=== PATIENT | female | born 1940 | race Caucasian/White ===

== ENCOUNTER 2023-07-29 06:04 | Day surgery (SDC) | payer OTHER, SELFPAY ==
[2023-07-28 09:45] VITALS: BMI 29.2
[2023-07-29] VITALS (16 sets, daily range): BP systolic 99–145; BP diastolic 49–72; PULSE 65–84; RESP 11–20; TEMP 36.1–37; O2SAT 88–99; BMI 29.7
--- NOTE | 2023-07-29 | DI.RAD.S_ITS ---
PROCEDURE: [id number] W PEL IF PERFORMED INDICATIONS: intra op total left hip TECHNIQUE: AP pelvis with lateral view(s) of the left hip(s). COMPARISON: Located Within [facility], CR, XR HIP W PEL IF DONE LT 2V, 07/29/2023, 11:30. [facility], CR, XR PELVIS WITH LATERAL HIP LEFT, 07/27/2023, 12:28. [facility] [place], CR, XR BONE LENGTH SCANOGRAM, 07/14/2023, 13:05. FINDINGS: Multiple intraoperative fluoroscopy images demonstrate total hip arthroplasty. The prosthesis is in anatomic alignment. IMPRESSION: Left hip arthroplasty with prosthesis in anatomic alignment. Dictated by: Dominique Izaguirre M.D. on 07/29/2023 at 14:11 Approved by: Dominique Izaguirre M.D. on 07/29/2023 at 14:13
--- NOTE | 2023-07-29 06:00 | DI.RAD.S_ITS ---
PROCEDURE: XR HIP W PEL IF DONE LT 2V INDICATIONS: HILARIO TECHNIQUE: AP pelvis and lateral view of the hip acquired. COMPARISON: [facility], CR, [id number] W PEL IF PERFORMED, 07/29/2023, 10:39. FINDINGS: Bones: Patient is status post left hip arthroplasty, with hardware components in expected positions. The hip joint appears congruent. The visualized bony structures appear intact. Soft tissues: Overlying postoperative changes are noted. No suspicious soft tissue densities. IMPRESSION: Expected post-operative appearance of a hip arthroplasty. Dictated by: Behzad Montes M.D. on 07/29/2023 at 12:17 Approved by: Behzad Montes M.D. on 07/29/2023 at 12:20
[2023-07-29] MEDS: LACTATED RINGERS 1,000 ML 42 ML IV (07:17)
[2023-07-29] MEDS: MELOXICAM 7.5 MG TABLET PO (07:18)
[2023-07-29] MEDS: ACETAMINOPHEN 325 MG TABLET 975 MG PO (07:18)
--- NOTE | 2023-07-29 07:27 | SUR.OPER ---
Supine on padded Ocate table with bilateral legs secured in padded positioning boots and suspended in positioning spars, operative leg in traction per surgeon. Head on one pillow. Arms secured on padded armboard <90 degrees abduction. Padded perineal post in place per surgeon.
--- NOTE | 2023-07-29 07:34 | PM.PREOP ---
Pre-operative Note Interval Note History & Physical reviewed/Exam performed by Physician: Yes Changes to H&P: No
[2023-07-29] MEDS: CEFAZOLIN 2 GM/100 ML PREMIX 100 ML IV ×2 (08:17→16:26)
[2023-07-29] MEDS: TRANEXAMIC ACID 1,000 MG VIAL 2000 MG INJ (08:27)
[2023-07-29] MEDS: ROPIVACAINE/EPI/CLONIDINE/KET 50 ML SYRINGE INJ (08:47)
[2023-07-29] MEDS: SODIUM CHLORIDE IRRIG SOLUTION 250 ML, EPINEPHrine 1 MG IRR (09:12)
--- NOTE | 2023-07-29 11:45 | P.OP_ITS ---
Operative Date/Time/Diagnoses Date of procedure: 07/29/23 Pre-op diagnosis: Left hip arthritis Post-op diagnosis: same Procedure & Clinicians Procedure: Left total hip arthroplasty (62056) Same procedure as scheduled: Yes Surgeon: Dinesh Rodriguez Ice Cream Dipper: Rylie Lyman Anesthesia Type: Spinal and Local Operative Notes Estimated Blood Loss (mL): 550 Procedure in detail: Implants: Depuy Total Hip Arthroplasty: * Depuy [place] Gription size 54 cup?with 3 screws * Depuy C stem femoral stem size 6 high offset? * 36 mm +1.5 ceramic femoral head? Procedure Summary: This 82-year-old female patient presented my clinic with a constellation of orthopedic issues. On her right hip she had a prior total hip arthroplasty with a modular neck prosthesis. I obtained metal ion levels which were slightly elevated and plan to monitor that side. In her right tibia she has a prior tibial fracture which underwent intramedullary nailing and has a malunion. There is a significant rotational component to her deformity. I sent her for evaluation from an Orthopedic traumatologist who recommended addressing her deformity through a total knee arthroplasty. I have discussed doing that in the future. I felt that the tibia was likely her biggest source of functional impairment but she felt very strongly that it was her hip and strongly desired to address her hip 1st. This left hip had significant arthritic changes. As part of the surgery planning process I obtained results of her prior DEXA scan which were actually normal. Given her age and appearance on plain film radiographs of severe osteoporosis in his hip I did not believe those results and proceeded with cemented fixation for today's procedure. Intraoperatively I utilized screw fixation for her acetabular component given her poor bone quality. I broached all the way up to a size 5 broach for the C stem system, which is 1 of the larger broaches for this implant. After initial trialing that was actually rotationally unstable so I upsized to a size 6 for the final implant. I had appropriate stability during initial trialing with the size 5 broach and this remained the case when trialing with a size 6 high offset stem following cementation. During the insertion of the stem I applied a valgus moment to avoid having the stem rest in varus and this resulted in slight valgus positioning of the stem due to the capacious nature of her femoral canal. This likely resulted in slight increase in leg length and slight decrease in offset in the final construct. It was quite challenging to assess leg length fluoroscopically as her lesser trochanters on both sides were challenging to visualize due to diminished bone mineral density within them. Additionally, I have discussed with her and her family at length that she may have a limb length discrepancy following the combination of procedures I plan to proceed with because of the deformity in her right tibia. The patient has factor 5 Leiden and I will use her home anticoagulation for DVT prophylaxis following her departure from the hospital. While she remains in the hospital I will utilize aspirin DVT prophylaxis. Procedure in Detail: This patient was seen preoperatively and evaluated for hip pain which was refractory to numerous nonoperative treatment modalities. Their hip pain correlated with radiographic changes demonstrating significant degeneration in the hip joint. The risks and benefits of continued nonoperative management versus operative management were discussed at length and all of the patient?s questions were answered. Additional educational materials providing further details beyond our discussion in clinic were provided via a publicly available patient education video which included the incidence of medical complications associated with total hip arthroplasty, reasons for revision following total hip arthroplasty, and patient satisfaction rates following total hip arthroplasty. That video can be accessed at [email or web address] . With this understanding of the risks inherent to the procedure, the patient elected to move forward with operative management. Following preoperative optimization, the patient was scheduled for surgery. The patient was met in the preoperative holding area the day of the procedure and all questions were answered. The patient?s nares were swabbed with betadine in order to decolonize them from MRSA. Informed consent was signed and the operative limb was marked with indelible ink.? The patient was brought back to the operating room where anesthesia was induced. The patient was transferred to the [place] table and all bony prominences were padded. The operative site was prepped and draped in the usual sterile fashion. Prior to incision, tranexamic acid and cefazolin were administered. Operative templating images were displayed demonstrating the anticipated implant sizes and correct operative extremity. A timeout procedure was performed verifying the patient?s identity, medical comorbidities, allergies, relevant medications, anesthesia type and the surgical plan. All present were in agreement. The assistance of a physician medical record assistant was required for positioning, room setup, soft tissue retraction and wound closure. Without this assistance, the procedure would have been significantly more challenging and time consuming.?? A direct anterior approach to the hip was utilized. This was performed with a longitudinal incision through a Heuter interval. The incision was planned 2 cm distal and 2 cm lateral to the ASIS extending towards the lateral patella, in line with the muscle body of the TFL. Following incision, the subcutaneous tissue was dissected while taking care to avoid injury to the lateral femoral cutaneous nerve. The fascia overlying the TFL was identified by dissecting off the overlying fat and identifying perforating vessels to the TFL. The TFL fascia was incised and dissected away from the medial border of the TFL. A cobra retractor was placed over the superior femoral neck between the abductors and the hip capsule and used to reflect the TFL laterally. A [place] self-retainer was then placed in the distal aspect of the wound between the TFL and the rectus femoris. This was tensioned to open up the direct anterior interval and the lateral circumflex vessels were identified and coagulated using electrocautery. The floor of the TFL fascia was incised, exposing the pericapsular fat overlying the hip capsule. A second cobra retractor was placed on the inferior femoral neck. A double-bent soft tissue retractor was placed on the anterior wall of the acetabulum and used to tension the reflected head of rectus femoris, which was then released in order to limit soft tissue tension. A capsulotomy was made in the midline of the anterior hip capsule in line with the femoral neck ending at the vastus tubercle. The double-bent retractor was removed in order to limit the amount of time that a soft tissue retractor remained on the anterior wall and protect the femoral nerve. Tag stitches were placed in the superior and inferior leaflets of the hip capsule. An [place] soft tissue retractor was introduced over the tag stitches and tensioned in the interval between the rectus femoris and the TFL in order to retract and protect those muscles. The cobra retractors were replaced intracapsularly, with one over the superior neck in the pocket created by the base of the greater trochanter and the other on the femoral head. The capsulotomy was extended laterally to the base of the greater trochanter and medially to the lesser trochanter. This required externally rotating the hip. Once the lesser trochanter had been identified, a neck cut was planned according to measurements from preoperative templating. A ruler was cut at the length measured between the superior aspect of the lesser trochanter and the collar of the prosthesis. This line was extended towards the inferior aspect of the lateral cobra retractor to plan a cut which would leave minimal residual femoral neck laterally. The neck was cut at 60 degrees of external rotation along that line. A second cut was performed to remove a large napkin ring and facilitate head extraction. The napkin ring cut and femoral head were removed.?? A broad anterior wall retractor was placed between the labrum and the anterior capsule so that the anterior capsule would prevent capturing and pinching the femoral nerve anteriorly. An additional retractor was placed on the posterior wall. External rotation and traction were applied through the [place] table so that the cut surface of the femoral neck would not restrict access to the acetabulum. The labrum was excised sharply and the pulvinar was excised with electrocautery to limit bleeding from branches of the obturator artery. Acetabular reamers were selected based on preoperative templating and measurements of the excised femoral head. These were introduced into the acetabulum. Fluoroscopy was utilized to replicate a standing AP pelvis radiograph by centering over the pelvis, rotating until there was appropriate symmetry between the obturator foramen, and introducing caudal tilt to match the position of the pubic symphysis relative to the sacrococcygeal junction according to the patient?s anatomy. Fluoroscopy was utilized to ensure appropriate reaming depth. Once satisfied with the reaming depth corresponding to the preoperative template and the pinch fit between the columns, an appropriate sized acetabular cup was selected which would provide 1 mm of press-fit. This cup was introduced and manipulated until appropriate abduction and anteversion angles were obtained with careful attention to appropriate abduction and anteversion angles as evaluated by the position of the cup relative to the anterior and posterior contreras of the acetabulum and the AP fluoroscopy which recreated the patient?s standing radiograph. The cup was impacted into place. Three screws were placed through the cup. Peripheral osteophytes were removed. The acetabular liner was then placed with care to ensure locking of the locking mechanism.? Attention was then turned to the femur. All retractors were removed, traction was released, a retractor was placed in the interval between the hip capsule and the gluteus minimus, and the hip was externally rotated to 90 degrees. Traction was applied through the [place] table to tension the lateral capsule and this was released using electrocautery. Traction was released and a [place] hook was placed posteriorly around the proximal femur at the level of the vastus ridge. The table height was lowered in order to restrict the tension on the anterior structures during hip hyperextension to limit the risk of femoral nerve palsy. With traction off and the hip at 90 degrees of external rotation, the hip was hyperextended and adducted while manually elevating the femur away from the acetabulum with the [place] hook to ensure it would not be caught behind the greater trochanter. An asymmetric retractor was placed over the calcar and a broad double-pronged retractor was placed over the greater trochanter. The tag stitch capturing the lateral leaflet of the capsule was moved to the medial side, leaving the conjoined and piriformis tendons isolated in the face of the greater trochanter. The hip was externally rotated and elevated. A release of the conjoined tendon was not necessary in order to obtain adequate exposure for broaching but was utilized any way in order to protect her relatively poor bone. The canal was opened with an opening broach and a rasp was used to remove cancellous bone. I noted extremely poor bone quality when I did this. A rongeur was used to remove the residual lateral bone at the base of the greater trochanter to avoid placing the stem in varus. The femur was then broached to the appropriate sized stem yielding good rotational fit and fill of the canal as well as appropriate version of the stem trial. Neck and head trials were placed, all retractors were removed and the hip was returned to neutral abduction and extension. I then reduced the hip. An AP pelvis fluoroscopic image matching the preoperative standing radiograph was obtained with both hips in 40 degrees of external rotation. This was challenging to interpret due to poor bone mineral density in her lesser trochanters. An AP hip fluoroscopic image was obtained with the hip in neutral rotation which demonstrated appropriate canal fill. Hip stability was evaluated with 120 degrees of external rotation and a 45 degree drop test which demonstrated good stability. The hip was dislocated and I returned to the broaching position. I noted that the size 5 broach was unstable so I inserted a size 6 broach and was able to bring it down to the same level as my initial calcar planing. I irrigated the canal with a canal interventional nurse. I placed a cement restrictor. I irrigated again. I placed a whistle-tip catheter down the canal. I placed epinephrine-soaked vaginal packing around the whistle-tip catheter. Cement was mixed. I removed the vaginal packing and placed cement down the canal. I digitally pressurized it. I pressurized it again using the gun. The definitive stem was placed. I again trialed and again found satisfactory results. I therefore returned to the broaching position. And the trunnion was cleaned and dried. I placed a ceramic head onto the trunnion and impacted it into place on the [place] taper.??All retractors were removed and the hip was reduced. A dilute mixture of betadine and peroxide was used to bathe the soft tissues during final fluoroscopic assessment. Appropriate component positioning was confirmed on an AP pelvis radiograph with the operative and nonoperative legs in 40 degrees of external rotation, evaluating leg length and offset. Appropriate stem fill was evaluated on an AP hip radiograph with the operative leg in neutral rotation. No fractures were identified on these radiographs. Stability was satisfactory with a 120 degree external rotation test as well as a 45 degree drop test. The hip was copiously irrigated with pulse lavage. The capsule was closed with absorbable interrupted suture. The TFL fascia was closed with barbed suture while carefully protecting the lateral femoral cutaneous nerve from entrapment. A mixture of Ropivacaine, Epinephrine, Clonidine and Toradol was infiltrated throughout the soft tissues. The skin was closed with 2-0 and 3-0 sutures. Surgical glue was applied and a soft dressing was placed.??The sponge, instr ument and needle counts were reported as being correct at the end of the case.??No obvious complications occurred. The patient was transferred from the [facility] back to a stretcher. The patient emerged from anesthesia without difficulty and was taken to the PACU in a stable condition.? Plan for aftercare: * Anterior hip precautions * Weightbearing as tolerated * Mobilization as soon as the patient has recovered from anesthesia * Holding antihypertensives while we evaluate for orthostatic hypotension during patient's initial recovery. Plan to restart home antihypertensives once her postoperative blood pressure has stabilized * Aspirin 81 twice per day for DVT prophylaxis until she leaves the hospital at which time she should restart her home anticoagulant * Multimodal pain regimen with no IV opioids ordered * Anticipate discharge home tomorrow or the day after * Sia incisional wound VAC in place. This can remain on until the battery dies at which time the cord can be removed and it can remain in place until follow up visit * Follow up at [facility] in 2 weeks * Detailed postoperative instructions available at [email or web address]
[2023-07-29] MEDS: OXYCODONE IR 5 MG TABLET PO (11:51)
[2023-07-29] MEDS: IBUPROFEN 600 MG TABLET PO ×2 (12:37→17:47)
[2023-07-29] MEDS: LACTATED RINGERS 1,000 ML 100 ML IV (12:38)
--- NOTE | 2023-07-29 15:30 | PT.IIE ---
Current Diagnoses Unilateral primary osteoarthritis, left hip (07/29/23) Surgery Performed Operation Date: 07/29/23 07:45 Actual Procedures p Total Hip Arthroplasty/Anterior Approach(Left) - Dinesh Rodriguez MD Surgical History (Last Reviewed 07/29/23 @ 07:33 by Daly Landry, RN) History of carpal tunnel surgery of left wrist History of carpal tunnel surgery of right wrist History of hysterectomy History of open reduction and internal fixation (ORIF) procedure (04/2022) History of total right hip replacement (~2012) Hx of foot surgery Medical History (Last Reviewed 07/29/23 @ 07:33 by Daly Landry, SHARRI) Embolism (~2016) Factor V Leiden History of COVID-19 (~02/2023) HTN (hypertension) Hypothyroidism IBS (irritable bowel syndrome) Macular degeneration of both eyes Osteoarthritis Osteoporosis Pulmonary embolism (2009) Stasis dermatitis Physical Therapy Inpatient Evaluation/Re-Eval M1 PT/OT-IP Prior Functional Status Start: 07/29/23 16:35 Freq: NEEDED Status: Active Protocol: Document 07/29/23 15:30 AB (Rec: 07/29/23 16:53 AB [id number]) Medical Review Prior Functional Status Medical History Reviewed Yes Communication able to make needs known Mobility and Gait pt stated that she was modified independent with all mobilities and ambulation using a 4WW Social History Household Members family Living Arrangements House Number of Floors (Floors) One Floor Number of Stairs To Enter/Railing? has 1 step to enter the house Home Environment High Toilet,Walk in Shower Home Equipment Four Wheel Walker,Shower Seat with Backrest,Hand Held Shower ,Lift Recliner,Grab Bars In Shower Additional Social History Comment pt stated that she lives with her son and DIL pt has a toilet safety frame pt uses a lift recliner to sleep on M2 PT-IP Current Condition Start: 07/29/23 16:35 Freq: NEEDED Status: Active Protocol: Document 07/29/23 15:30 AB (Rec: 07/29/23 16:53 AB [id number]) Physical Therapy Current Condition Current Condition Evaluation Date 07/29/23 Treatment Diagnosis s/p L HILARIO anterior; difficulty in walking Onset Date 07/29/23 M3 PT-IP Subjective Start: 07/29/23 16:35 Freq: NEEDED Status: Active Protocol: Document 07/29/23 15:30 AB (Rec: 07/29/23 16:53 AB [id number]) Subjective Physical Therapy Visit Type Type Initial Evaluation Visit Start Time 15:30 Visit Stop Time 16:30 Number of [employer] Visits 0 Physical Therapy Visit Comments Patient Comments agreeable to do PT Therapy Pain Assessment Pain Present Pain Present Denied Pain M4 PT-IP Mobility and Gait Start: 07/29/23 16:35 Freq: NEEDED Status: Active Protocol: Document 07/29/23 15:30 AB (Rec: 07/29/23 16:53 AB [id number]) PT-Bed Mobility Assessment Supine to Sit Supine to Sit Minimal Assistance,Head of Bed Elevated,Bedrails Sit to Supine Sit to Supine Maximum Assistance,Bedrails PT-Transfer Assessment Sit to and From Stand Sit to and from Stand Minimal Assistance,1 Person Assistance,Use of Upper Extremities Equipment Transfer Assistive Device Gait Belt,Front Wheeled Walker Orthotic/Prosthetic Devices or Brace: No Transfers Transfer Destination Bedside Commode Transfer Technique Stand Step Pivot Transfer Ability Level of Assist Minimal Assistance,1 Person Assistance,Use of Upper Extremities Comments Mobility Comments pt supine in bed and agreeable to do PT. obtained PLOF and home set up from pt. pt initially does not want to use a FWW but agreed to try FWW for eval. post-op folder provided and reviewed contents . educated pt regarding anterior hip precautions LLE. pt requires cues to recall hip precautions. BP in supine 104/64. pt stated that she feels she is wet. pt completed supine to sit min A and cues. able to sit on EOB CGA. positioned bedside commode next to pt. pt completed sit to stand min A and cues and completed step transfer to bedside commode using FWW min A and cues for techniques and hip precautions . pt assisted witih brief management. completed sit to stand from bedside commode min A and cues. pt able to maintain standing balance using fWW for support min A while completing hygiene care and brief management. pt agreed to ambulate in room and completed ~ 25 ft using fWW min A and cues. pt sat on EOB . completed sit to supine max A and max cues. required assist with LE elevation to bed. positioned pt in bed. call light and table placed within reach. set up caregiver training and pt stated that she will call her son. set up at 9 am tomorrow morning. talked to pt regarding safety and use of FWW at this time and pt now agreed that FWW feels more stable than 4WW and stated that he will tell her son to get one for her. Gait Assessment Gait Gait Assistance Required: Minimum Assistance Distance (Feet) 25 Able to Maintain Weight Bearing Status Yes During Gait Assistive Devices Assistive Device Gait Belt,Front Wheeled Walker Orthotic/Prosthetic Devices or Brace: No Gait Deviations General Gait Pattern Antalgic,Decreased Stride Length,Decreased Feet Clearance,Wide Based Gait Factors Limiting Gait Function Factors Limiting Gait Function Decreased Activity Tolerance, Decreased Strength,Difficulty Following Directions,Limited Range of Motion,Pain,Poor Balance,Poor Safety Awareness PT-Balance Assessment Sitting Balance and Reactions Static Sitting Balance Ability Good Dynamic Sitting Balance Ability Good Standing Balance and Reactions Static Standing Balance Ability Fair Dynamic Standing Balance Ability Fair Device Used FWW M5 PT-IP Objective Assessments Start: 07/29/23 16:35 Freq: NEEDED Status: Active Protocol: Document 07/29/23 15:30 AB (Rec: 07/29/23 16:53 AB [id number]) Orientation Orientation/Cognition Level of Alertness Alert Orientation Name,Place,Situation Language Function Ability No Deficits Noted Safety Awareness Decreased Safety Awareness Memory Description Short Term Impaired Gross Range of Motion Lower Extremity ROM Assessment Within Functional Limits Impairments R knee valgus Strength Lower Extremity Strength Assessment Left Impaired Hip 3-/5 Knee 3+/5 Sensation Assessment Sensation Gross Sensation WNL Muscle Tone Muscle Tone WNL Yes M6 PT-IP Treatment Start: 07/29/23 16:35 Freq: NEEDED Status: Active Protocol: Document 07/29/23 15:30 AB (Rec: 07/29/23 16:53 AB [id number]) Physical Therapy Treatment Education Education Provided Precautions,Weight Bearing Status,Post-Op Packet,Safety M7 PT-IP Assessment and Plan Start: 07/29/23 16:35 Freq: NEEDED Status: Active Protocol: Document 07/29/23 15:30 AB (Rec: 07/29/23 16:53 AB [id number]) PT Summary Assessment and Plan Potential Rehabilitation Potential Fair Status of Condition at Evaluation Evolving Summary Impairments Pain,ROM,Strength,Balance, Coordination,Sensation,Tone, Cognition,Bed Mobility, Transfers,Gait,Activity Tolerance Assessment Summary pt is an 82 y/o F s/p L HILARIO anterior approach POD 0. pt has L hip anterior precautions and is WBAT. pt requiring max A with bed mobility but plans to use her lift chair to sleep on upon d/c. pt requiring min A for transfers and ambulation using a FWW. caregiver training set up for tomorrow at 9 am. will continue to assess progress. Goals Bed Mobility Goal Standby Assistance Transfer Goal Standby Assistance,Front Wheeled Walker Gait Goal Standby Assistance,Front Wheel Walker Gait Distance 150 Other Goals improve bed mobility, transfers, ambulation using 4WW/LRAD ~ 200 ft mod I up/down 1 step using FWW/4WW SBA Days to Meet Goals 5 Frequency of Treatment Frequency Of Treatment Twice a Day Treatment Plan Physical Therapy Treatment Plan Bed Mobility Training,Transfer Training,Gait Training, Therapeutic Exercise,Balance Retraining,Post Op Education, Discharge Planning,Hot or Cold Pack,Neuromuscular Re-ed, Coordination Retraining,Manual Therapy Precautions Anterior Hip Precautions No Hip Extension,No Hip External Rotation Weight Bearing Status Weight Bearing Status Weight Bear as Tolerated Allowed Weight Bearing Amount (enter % LLE WBAT or #) (%) Recommendations To Nursing Amount of Assist Needed 1 Person Assist Discharge Recommendations PT Discharge Recommendations Home with 29/11 Assist Available,Home Health, Outpatient PT Equipment Needed for Home Before FWW Discharge Transportation Needs at Discharge Private Vehicle,Wheelchair/ Cabulance
--- NOTE | 2023-07-29 18:40 | OT.IP.EVAL ---
Current Diagnoses Unilateral primary osteoarthritis, left hip (07/29/23) Surgery Performed Operation Date: 07/29/23 07:45 Actual Procedures p Total Hip Arthroplasty/Anterior Approach(Left) - Dinesh Rodriguez MD Past Medical History (Last Reviewed 07/29/23 @ 07:33 by Daly Landry, RN) Embolism (~2016) Factor V Leiden History of COVID-19 (~02/2023) HTN (hypertension) Hypothyroidism IBS (irritable bowel syndrome) Macular degeneration of both eyes Osteoarthritis Osteoporosis Pulmonary embolism (2009) Stasis dermatitis Surgical History (Last Reviewed 07/29/23 @ 07:33 by Daly Landry, RN) History of carpal tunnel surgery of left wrist History of carpal tunnel surgery of right wrist History of hysterectomy History of open reduction and internal fixation (ORIF) procedure (04/2022) History of total right hip replacement (~2012) Hx of foot surgery Occupational Therapy Inpatient Evaluation/Re-Eval M1 PT/OT-IP Prior Functional Status Start: 07/29/23 18:40 Freq: NEEDED Status: Active Protocol: Document 07/29/23 18:40 [facility] (Rec: 07/29/23 18:54 [facility] [id number]) Medical Review Prior Functional Status Medical History Reviewed Yes Communication able to make needs known Mobility and Gait pt stated that she was modified independent with all mobilities and ambulation using a 4WW Activities of Daily Living and IADL's Pt states uses LB dressing equipment and increased time for ADl. Social History Household Members family Living Arrangements House Number of Floors (Floors) One Floor Number of Stairs To Enter/Railing? has 1 step to enter the house Home Environment High Toilet,Walk in Shower Home Equipment Four Wheel Walker,Shower Seat with Backrest,Hand Held Shower ,Lift Recliner,Grab Bars In Shower Additional Social History Comment pt stated that she lives with her son and DIL pt has a toilet safety frame pt uses a lift recliner to sleep on M2 OT-IP Current Condition Start: 07/29/23 18:40 Freq: Status: Active Protocol: Document 07/29/23 18:40 [facility] (Rec: 07/29/23 18:54 [facility] [id number]) Occupational Therapy Current Condition Current Condition Evaluation Date 07/29/23 Treatment Diagnosis s/p L HILARIO anterior approach Diagnosis Onset Date 07/29/23 Post Operative Precautions Anterior Hip Precautions No Hip Extension,No Hip External Rotation M3 OT- IP Subjective and Pain Start: 07/29/23 18:40 Freq: Status: Active Protocol: Document 07/29/23 18:40 [facility] (Rec: 07/29/23 18:54 [facility] [id number]) OT- Subjective Occupational Therapy Visit Type Type Initial Evaluation Visit Start Time 17:50 Visit Stop Time 18:40 Occupational Therapy Visit Comments Patient Comments Pt agreed to get up to use the BSC. Patient/Caregiver Goals TO go home. OT Pain Assessment Pain When Pain Assessed During Mobility Pain Present Pain Present Pain Reported M4 OT- IP ADL's Start: 07/29/23 18:40 Freq: Status: Active Protocol: Document 07/29/23 18:40 [facility] (Rec: 07/29/23 18:54 [facility] [id number]) OT [id number] Comments OT Self-Feeding Comments NO issues anticipated. OT ADL-Grooming General Evaluation Grooming Ability Standby Assistance OT ADL-Oral Care Comments Oral Care Comments NOt peformed. OT ADL-Dressing General Eval Lower Body Dressing Ability Maximum Assistance Areas Needing Assistance Socks OT ADL-Toileting General Evaluation Toileting Ability Minimal Assistance Areas Needing Assistance Manage Clothing Comments OT Toileting Comments Assist to pull down the brief over her hips. Pt states usually wears pads at home and considering getting a BSC or Purewick for home use. Discussed pros and cons for each. OT ADL-Bathing Comments OT Bathing Comments Not performed, educated pt on care for showering needs. M5 OT- IP IADL's Start: 07/29/23 18:40 Freq: Status: Active Protocol: Document 07/29/23 18:40 [facility] (Rec: 07/29/23 18:54 [facility] [id number]) OT-Instrumental Activities of Daily Living Deficits IADL Deficits Identified Deficits Home Safety Awareness Awareness of Need for Assistance at Home Good Awareness Ability to Problem Solve Emergency Able to Problem Solve Situations Meal Preparation Meal Preparation Caregiver Provides Assist Mobile Sales Expert Mobile Sales Expert Caregiver Provides Assist M6 OT- IP Functional Cognition Start: 07/29/23 18:40 Freq: Status: Active Protocol: Document 07/29/23 18:40 [facility] (Rec: 07/29/23 18:54 [facility] [id number]) Cognitive Factors Limiting Selfcare Function Cognitive Ability Level of Alertness Alert Patient Orientation Name,Age,Birthday,Month,Date, Year,Day of Week,Place, Situation Attention Span Ability Capable of Focused Attention, Capable of Sustained Attention Ability to Follow Commands Able to Follow One Step Commands Cognitive Comments Cognitive Assessment Comments Pt able to state and follow her anterior hip precautions for ADl and mobility needs. OT- Vision and Hearing OT- Vision Assessment Visual Acuity Glasses All The Time M7 OT- IP Mobility and Balance Start: 07/29/23 18:40 Freq: Status: Active Protocol: Document 07/29/23 18:40 [facility] (Rec: 07/29/23 18:54 [facility] [id number]) OT- Bed Mobility Assessment Supine to Sit Supine to Sit Assist Minimal Assistance Sit to Supine Sit to Supine Assist Minimal Assistance OT-Transfer Assessment Sit to and From Stand Sit to and from Stand Contact Guard Assistance Transfers Transfer Ability Contact Guard Assistance Technique Transfer Destination Bed,Bedside Commode Transfer Technique Stand Step Pivot Devices Transfer Assistive Devices Gait Belt,Front Wheeled Walker Comments Mobility Comments Assist to help with LLE management and education for positioning needs. OT- Balance Assessment Sitting Balance and Reactions Static Sitting Balance Ability Normal Dynamic Sitting Balance Ability Good Standing Balance and Reactions Static Standing Balance Ability Good Dynamic Standing Balance Ability Fair M8 OT- IP Objective Assessments Start: 07/29/23 18:40 Freq: Status: Active Protocol: Document 07/29/23 18:40 [facility] (Rec: 07/29/23 18:54 [facility] [id number]) OT Gross Range of Motion Upper Extremity Range of Motion Assessment Right Impaired OT Strength Upper Extremity Strength Assessment Right Impaired M9 OT- IP Assessment and Plan Start: 07/29/23 18:40 Freq: Status: Active Protocol: Document 07/29/23 18:40 [facility] (Rec: 07/29/23 18:54 [facility] [id number]) OT Summary Assessment and Plan Potential Rehabilitation Potential Excellent Analytic Complexity at Evaluation Low Summary OT Impairments Pain,Range of Motion,Strength, Balance,Functional Mobility, Dressing,Toileting,Bathing, Toilet Transfers,Shower Transfers,Activity Tolerance Progress Towards Goals Progressing Toward Goals Assessment Summary Pt is low complexity and main barriers are step, needing some assist for ADL and mobility needs. Pt will benefit from a BSC and looking to have a bidet installed. Pt to go home with 29/11 available assist and states to look into outpt PT when able as currently per pt, PT places in [place] booked out october, otherwise pt may benefit from home health. Goals Self-Feeding Goal Independent Grooming Goal Independent Dressing Goal Standby Assistance Toileting Goal Independent Bathing Goal Standby Assistance Toilet Transfer Goal Independent Shower Transfer Goal Standby Assistance Days to Meet Goals 7 Frequency of Treatment Frequency Of Treatment Once a Day Treatment Plan OT Treatment Plan ADL Training,Functional Mobility,Patient/Family Education,Discharge Planning Discharge Recommendations OT Discharge Recommendations Home with 29/11 Assist Available,Home Health, Outpatient PT Home Equipment Needs BSC, bidet Transportation Needs at Discharge Private Vehicle
[2023-07-29] MEDS: ASPIRIN EC 81 MG TABLET PO (20:03)
[2023-07-29] MEDS: DOCUSATE 100 MG CAPSULE PO (20:03)
--- NOTE | 2023-07-29 20:28 | P.PN_ITS ---
Subjective Subjective Interval history: Patient is seen postoperatively. Resting comfortably on the floor. Reports she has no pain in her hip. Reports that she got up and walked around and had minimal discomfort during that process. Sensation intact to light touch in L2 through S1 nerve distributions. Dressing clean dry and intact. Plan for discharge which will likely end up being on Tuesday back to her home. She will resume her home anticoagulant at the time of discharge. She should receive aspirin until discharge Exam Vital Signs (past 8 hours): - 07/29/23 12:45 07/29/23 13:10 07/29/23 14:10 Temperature Pulse Rate 69 71 79 Respiratory Rate 16 16 16 Blood Pressure 120/64 109/54 L 122/54 L Pulse Oximetry 95 92 93 Oxygen Flow Rate 0 07/29/23 15:10 07/29/23 20:15 Temperature 97.8 F Pulse Rate 84 84 Respiratory Rate 16 17 Blood Pressure 107/59 L 102/50 L Pulse Oximetry 95 93 Oxygen Flow Rate Oxygen Delivery Method Room Air Oxygen Flow Rate 0 Objective Labs Labs: Laboratory Results - last 24 hr 07/29/23 07:15 PT 11.0 INR 1.0 Blood Type B Positive Antibody Screen Negative [facility] Medical History History of COVID-19 (~02/2023) Macular degeneration of both eyes Stasis dermatitis Pulmonary embolism (2009) Factor V Leiden Osteoporosis Hypothyroidism Osteoarthritis IBS (irritable bowel syndrome) Embolism (~2016) HTN (hypertension) Surgical History Hx of foot surgery History of carpal tunnel surgery of left wrist History of carpal tunnel surgery of right wrist History of open reduction and internal fixation (ORIF) procedure (04/2022) History of total right hip replacement (~2012) History of hysterectomy Social History household members: family Smoking Status: Former smoker alcohol intake: current Quality VTE Deep Vein Thrombosis/Pulmonary Embolism Present on Admission: No
[2023-07-30] MEDS: CEFAZOLIN 2 GM/100 ML PREMIX 100 ML IV (00:01)
[2023-07-30] MEDS: ACETAMINOPHEN 325 MG TABLET 975 MG PO (00:05)
[2023-07-30] MEDS: IBUPROFEN 600 MG TABLET PO ×4 (00:05→18:14)
[2023-07-30 04:24] VITALS: BP 108/41; PULSE 90; RESP 16; TEMP 36.8; O2SAT 96
[2023-07-30] MEDS: LEVOTHYROXINE 137 MCG TABLET PO (06:14)
[2023-07-30 06:45] LABS: Hematocrit 25.6 % (36-46); Hemoglobin 8.7 g/dL (12.0-16.0)
[2023-07-30 08:00] VITALS: BP 113/56; PULSE 83; RESP 16; TEMP 36.2; O2SAT 92
--- NOTE | 2023-07-30 09:00 | PT.IPTN ---
Current Diagnoses Unilateral primary osteoarthritis, left hip (07/29/23) Surgery Performed Operation Date: 07/29/23 07:45 Actual Procedures p Total Hip Arthroplasty/Anterior Approach(Left) - Dinesh Rodriguez MD Physical Therapy Treatment Note M2 PT-IP Current Condition Start: 07/29/23 16:35 Freq: NEEDED Status: Active Protocol: Document 07/29/23 15:30 AB (Rec: 07/29/23 16:53 AB [id number]) Physical Therapy Current Condition Current Condition Evaluation Date 07/29/23 Treatment Diagnosis s/p L HILARIO anterior; difficulty in walking Onset Date 07/29/23 M3 PT-IP Subjective Start: 07/29/23 16:35 Freq: NEEDED Status: Active Protocol: Document 07/30/23 09:33 TS (Rec: 07/30/23 09:41 TS [id number]) Subjective Physical Therapy Visit Type Type Treatment Note Visit Start Time 09:00 Visit Stop Time 09:32 Number of NURSING HOME AIDE Visits 1 Physical Therapy Visit Comments Patient Comments Pt found resting in chair, is agreeable to PT. M4 PT-IP Mobility and Gait Start: 07/29/23 16:35 Freq: NEEDED Status: Active Protocol: Document 07/30/23 09:33 TS (Rec: 07/30/23 09:41 TS [id number]) PT-Transfer Assessment Sit to and From Stand Sit to and from Stand Contact Guard Assistance,1 Person Assistance,Use of Upper Extremities Equipment Transfer Assistive Device Gait Belt,Front Wheeled Walker Orthotic/Prosthetic Devices or Brace: No Comments Mobility Comments Pt recalled no hip ext for ant precautions, did not recall no ext rotation. STS from chair CGA with FWW, pt required cues for BUE support. She ambulated in room ~50'SBA with step to gait, demonstrated good carryover of gait sequencing. She performed steps x2 CGA with FWW on platform step, pt required cues for sequencing. Pt was left back in chair, all needs met. Gait Assessment Gait Gait Assistance Required: Standby Assistance Distance (Feet) 50 Able to Maintain Weight Bearing Status Yes During Gait Assistive Devices Assistive Device Gait Belt,Front Wheeled Walker Orthotic/Prosthetic Devices or Brace: No Gait Deviations General Gait Pattern Antalgic,Decreased Stride Length,Decreased Feet Clearance,Wide Based Gait Factors Limiting Gait Function Factors Limiting Gait Function Decreased Activity Tolerance, Decreased Strength,Difficulty Following Directions,Limited Range of Motion,Pain,Poor Balance,Poor Safety Awareness Comments Gait Comments See mobility comments Stair Climbing Assessment Evaluation Level of Assist On Stairs Contact Guard Assistance Devices Stair Climbing Assistive Devices Front Wheel Walker Technique/Endurance Stair Climbing Direction Ascend and Descend Stair Climbing Technique Step to Step Number of Steps Climbed 2 PT-Balance Assessment Sitting Balance and Reactions Static Sitting Balance Ability Normal Dynamic Sitting Balance Ability Good Standing Balance and Reactions Static Standing Balance Ability Good Dynamic Standing Balance Ability Fair Device Used FWW M5 PT-IP Objective Assessments Start: 07/29/23 16:35 Freq: NEEDED Status: Active Protocol: Document 07/29/23 15:30 AB (Rec: 07/29/23 16:53 AB [id number]) Orientation Orientation/Cognition Level of Alertness Alert Orientation Name,Place,Situation Language Function Ability No Deficits Noted Safety Awareness Decreased Safety Awareness Memory Description Short Term Impaired Gross Range of Motion Lower Extremity ROM Assessment Within Functional Limits Impairments R knee valgus Strength Lower Extremity Strength Assessment Left Impaired Hip 3-/5 Knee 3+/5 Sensation Assessment Sensation Gross Sensation WNL Muscle Tone Muscle Tone WNL Yes M6 PT-IP Treatment Start: 07/29/23 16:35 Freq: NEEDED Status: Active Protocol: Document 07/30/23 09:33 TS (Rec: 07/30/23 09:41 TS [id number]) Physical Therapy Treatment Education Education Provided Precautions,Weight Bearing Status,Post-Op Packet,Safety M7 PT-IP Assessment and Plan Start: 07/29/23 16:35 Freq: NEEDED Status: Active Protocol: Document 07/30/23 09:33 TS (Rec: 07/30/23 09:41 TS [id number]) PT Summary Assessment and Plan Potential Rehabilitation Potential Fair Summary Impairments Pain,ROM,Strength,Balance, Coordination,Sensation,Tone, Cognition,Bed Mobility, Transfers,Gait,Activity Tolerance Progress Towards Goals Progressing Toward Goals Assessment Summary Mt is making good progress with her mobility. She is CGA for STS from chair with cuees for sequencing. She progressed her gait to ~50'SBA with FWW and a step to gait. She performed stairs x2 with FWW CGA, she had no buckling or LOB. Family was not present for CG training. PT is recommending home with 29/11 assist and outpatient PT. Goals Bed Mobility Goal Standby Assistance Transfer Goal Standby Assistance,Front Wheeled Walker Gait Goal Standby Assistance,Front Wheel Walker Gait Distance 150 Other Goals improve bed mobility, transfers, ambulation using 4WW/LRAD ~ 200 ft mod I up/down 1 step using FWW/4WW SBA Days to Meet Goals 5 Frequency of Treatment Frequency Of Treatment Twice a Day Treatment Plan Physical Therapy Treatment Plan Bed Mobility Training,Transfer Training,Gait Training, Therapeutic Exercise,Balance Retraining,Post Op Education, Discharge Planning,Hot or Cold Pack,Neuromuscular Re-ed, Coordination Retraining,Manual Therapy Precautions Anterior Hip Precautions No Hip Extension,No Hip External Rotation Weight Bearing Status Weight Bearing Status Weight Bear as Tolerated Allowed Weight Bearing Amount (enter % LLE WBAT or #) (%) Recommendations To Nursing Amount of Assist Needed 1 Person Assist Discharge Recommendations PT Discharge Recommendations Home with 29/11 Assist Available,Home Health, Outpatient PT Equipment Needed for Home Before FWW Discharge Transportation Needs at Discharge Private Vehicle
[2023-07-30] MEDS: ASPIRIN EC 81 MG TABLET PO ×2 (09:53→20:07)
[2023-07-30] MEDS: SODIUM CHLORIDE 0.9% FLUSH 10 ML IV ×2 (09:54→20:07)
[2023-07-30] MEDS: DOCUSATE 100 MG CAPSULE PO ×2 (09:54→20:07)
--- NOTE | 2023-07-30 10:47 | CM.DANOTE ---
Addendum entered by Jannette Romero R.N. 07/30/23 12:26: Met again with patient, daughter in law in the room. Noticed that the note from ortho, PAC, indicated that patient can go home tomorrow when son can pick her up. Son was to have been here for caregiver training, and did not show up. Did let patient and [id number] know that this is a day surgery, patient's are normally discharged the same day if stable. Patient indicated, she had already spoken to the doctor about this, my son had an engagement that he could not get out of, so they said that I could stay another day. This will be an avoidable day, did send an email to CNO, and service delivery manager regarding this matter. Patient will discharge tomorrow, will work again with P.T. this pm. UR nurse has made this an avoidable day. Original Note: DCP: Case received, EMR reviewed and met with patient. Introduced self and role. Was able to complete DCP assessment based upon information currently available. Patient is an 82 year old female who admitted yesterday morning to the care of the orthopedic team. PCP: Dr. Johnson. Payer: confirmed: [facility]. Patient came to the hospital via private vehicle for a surgical procedure. Patient had left total hip arthroplasty. Patient has history of left hip arthritis. Met with patient in her room. She had finished working with [facility], ordered her a FWW. Patient is pleasant, and alert. Confirmed that she resides in [place] with son, and family. She indicated that she still drives. She has a four wheel walker that she has been using at home. She is in the process of seeking outpatient P.T, in her area, indicated that [facility] is full until October. P: DCP to continue to follow. Plan is home when stable, could DC today, pending current ortho note from today. Jannette Romero RN/Stave Cutting Supervisor Discharge Planning/Care Management CM Discharge Assessment Start: 07/30/23 10:45 Freq: Status: Active Protocol: Document 07/30/23 10:45 (Rec: 07/30/23 10:47 [id number]) Discharge Planning Assessment Assigned Appraiser Personal Property Jannette Romero RN/Stave Cutting Supervisor Advance Directives? Yes Advance Directives on File No History Provided By Patient,Medical Record Prior Living Arrangements House Household Members family Type of transporation used prior to Drives own vehicle admit Independent with ADL's Yes Is patient alert and oriented? Yes Needs Assistance With Home Chores / Shopping Caregiver for Another No DME Already Rented / Owned FWW / Walker Comment Normally uses a four wheel walker prior to surgery. Patient/Family Preference OP PT Therapy Barriers to Discharge No Discharge Plan Home Transportation Arrangement Family Referrals Initiated None needed Whiteboard Updated in Patient Room with Yes name and ext. # of Appraiser Personal Property Review Status In Process Next Review Type Continued Stay Review Pre-Anesthesia Assessment Start: 07/28/23 09:45 Freq: Status: Complete Protocol: Document 07/28/23 09:45 [facility] (Rec: 07/28/23 10:31 CAB [id number]) Pre-Anesthesia Assessment Preferred Name Mt Patient Information Reviewed Via Phone Assessment Assessment Completed With Patient Primary Care Provider Kallie Johnson Comment Pre-op 07/18/23 & Clearance form 07/11/23 scanned and in surgery folder Medical Clearance Received Yes Seen Specialist in Last 12 Months Yes Specialist Seen Orthopedist Primary Language Taiwanese Toolman Required No Height 5 ft 6.5 in Weight 184 lb Body Mass Index (BMI) 29.2 Hearing Ability Normal Visual Assist Glasses Dentition Type Full- Upper & Lower Barriers to Learning Age related,Memory Hx Anesthesia Reactions No Hx Family Anesthesia Reaction No Hx Malignant Hyperthermia No Hx Blood Transfusions No Anesthesia Review Requested No Crabber No alcohol intake current alcohol intake frequency holidays/special occasions only Smoking Status Former smoker how long ago did patient quit smoking Quit 1980 Pain Present Pain Reported Musculoskeletal Symptoms Abnormal Gait,Difficulty Walking,Joint Pain History of Falling (Recent or History of Yes ) Patient is completely paralyzed or No completely immobile Prosthesis or Orthotic Device Front Wheel Walker Mental Status Oriented to own ability Is patient on oxygen? No Does patient have KAHN/SOB No Hx Sleep Apnea No Currently Taking a Beta Gwen Yes: Atenolol Can You Climb a Flight of Stairs Without Yes SOB Hx Chest Pain No Hx SOB No Hx Syncope or Dizziness No Anti-Coagulant Therapy Yes: Xarelto-hold 48 hours prior per PCP Has a Utility Worker Film Processing No Cardiac Testing No Hx Pacemaker/ICD No Pacemaker Rep Required? No Cardiac Clearance Received Not Applicable Diet Type At Home Regular Comment Pt denies any current issues Bladder Pattern Frequency,Nocturia Urinary Catheter Present No Hx Urinary Self Catheterization No Diabetes No HgbA1C 5.6 Date 07/19/23 Patient No Lactating No Presence of External or Internal Medical Yes: Right hip, tibia Devices Received a COVID vaccine? Yes Received all doses? Yes Marital Status / Lives With family Current Living Arrangements House Number of Floors (Floors) One Floor Support System Child/Children Does the Patient Have Assistance After Yes: Pt lives with son and Surgery daughter in-law Patient Discharge Plan Description Return Home Comment Pt advised possible overnight length of stay per surgeon Feels Safe in Current Environment Yes Been Physically Hurt or Threatened By a No Person in Current Environment Do you have thoughts of harming yourself None or others? Are you currently considering suicide? No Do you have a plan to hurt yourself or No Plan others? Do You Have Any Spiritual Beliefs That No May Affect Your HC Choices? Do You Have Any Cultural Practices That No May Affect Your HC Choices? Comment Bahai Who Can We Speak to About Patient's Care Family, friends Identifying Code for Release of Patient Declines to issue Information Health Care Proxy/Next of Kin Naveed (son) Health Care Proxy Emergency Contact Name Naveed (son) Emergency Contact Advance Directives? Yes Advance Directives on File No Requested Patient Bring Advanced Yes Directives DOS Power of Crew Trainer Yes Power of Crew Trainer Name Naveed sesay) Power of Crew Trainer PAC Instructions Do not shave/clip surgical site,Durable medical equipment ,Medications to take/avoid, Nasal antibiotic,No ETOH/ petroleum product on skin DOS, NPO,Pre-surgical wash,Sensory aids,Sturdy shoes/comfortable clothes,Do not bring valuables and remove jewelry
--- NOTE | 2023-07-30 10:50 | P.PN_ITS ---
Subjective Subjective Date Patient Seen: 07/30/23 Time Patient Seen: 09:45 Interval history: Mt is found sitting in her chair. So she has little to no pain. Only concern she has is pain over her left randall which he said it was present before surgery. She had been able to work with physical therapy and pain is controlled with oral medications. She plans to go home tomorrow when her son is able to pick her up and be present at home. Exam Vital Signs (past 8 hours): - 07/30/23 04:24 07/30/23 08:00 07/30/23 09:15 Temperature 98.2 F 97.2 F L Pulse Rate 90 83 Respiratory Rate 16 16 Blood Pressure 108/41 L 113/56 L Pulse Oximetry 96 92 Oxygen Delivery Method Room Air Oxygen Flow Rate 0 0 Oxygen Delivery Method Room Air Oxygen Flow Rate 0 Narrative Exam Narrative: Patient found sitting comfortably in her chair. Dressing appears to be well- maintained no signs of drainage. No pain or warmth noted with compression of the posterior thigh or calf. 5/5 strength bilaterally with EHL, DF, PF, quadriceps and hamstrings. Sensation grossly intact bilaterally the lower extremities Const General: cooperative Objective Labs 07/30/23 06:24 Labs: Laboratory Results - last 24 hr 07/30/23 06:24 Hgb 8.7 L Hct 25.6 L PFSH Medical History History of COVID-19 (~02/2023) Macular degeneration of both eyes Stasis dermatitis Pulmonary embolism (2009) Factor V Leiden Osteoporosis Hypothyroidism Osteoarthritis IBS (irritable bowel syndrome) Embolism (~2016) HTN (hypertension) Surgical History Hx of foot surgery History of carpal tunnel surgery of left wrist History of carpal tunnel surgery of right wrist History of open reduction and internal fixation (ORIF) procedure (04/2022) History of total right hip replacement (~2012) History of hysterectomy Social History household members: family Smoking Status: Former smoker alcohol intake: current Assessment & Plan Post-op Postoperative Procedures: Procedures Operation Date: 07/29/23 07:45 Actual Procedure Side Surgeon p Total Hip Arthroplasty/Anterior Approach Left Dinesh Rodriguez MD Postoperative day: 1 Postoperative status: doing well Postoperative plan: routine post-op care Postoperative plan narrative: Patient will continue to work with physical therapy. Multimodal pain control. Currently, patient will be ready for discharge on July 30 when she has a ride home with appropriate supervision. Post operative medications, oxycodone 5mg have already been prescribed pre- operatively. She is already taking Xarelto for DVT prophylaxis. Time Spent With Patient Time with patient: less than 15 minutes Quality VTE Deep Vein Thrombosis/Pulmonary Embolism Present on Admission: No
--- NOTE | 2023-07-30 13:40 | PT.IPTN ---
Current Diagnoses Unilateral primary osteoarthritis, left hip (07/29/23) Surgery Performed Operation Date: 07/29/23 07:45 Actual Procedures p Total Hip Arthroplasty/Anterior Approach(Left) - Dinesh Rodriguez MD Physical Therapy Treatment Note M2 PT-IP Current Condition Start: 07/29/23 16:35 Freq: NEEDED Status: Active Protocol: Document 07/29/23 15:30 AB (Rec: 07/29/23 16:53 AB [id number]) Physical Therapy Current Condition Current Condition Evaluation Date 07/29/23 Treatment Diagnosis s/p L HILARIO anterior; difficulty in walking Onset Date 07/29/23 M3 PT-IP Subjective Start: 07/29/23 16:35 Freq: NEEDED Status: Active Protocol: Document 07/30/23 14:44 TS (Rec: 07/30/23 14:52 TS [id number]) Subjective Physical Therapy Visit Type Type Treatment Note Visit Start Time 13:40 Visit Stop Time 14:05 Notes Pt will need FWW 07/30 Number of HAT FORMER Visits 2 Physical Therapy Visit Comments Patient Comments Pt was found resting in bed, would like to get up to commode. M4 PT-IP Mobility and Gait Start: 07/29/23 16:35 Freq: NEEDED Status: Active Protocol: Document 07/30/23 14:44 TS (Rec: 07/30/23 14:52 TS [id number]) PT-Bed Mobility Assessment Supine to Sit Supine to Sit Standby Assistance,Head of Bed Elevated,Bedrails Sit to Supine Sit to Supine Minimal Assistance Scooting Scooting to Edge of Bed Standby Assistance PT-Transfer Assessment Sit to and From Stand Sit to and from Stand Contact Guard Assistance,1 Person Assistance,Use of Upper Extremities Equipment Transfer Assistive Device Gait Belt,Front Wheeled Walker Orthotic/Prosthetic Devices or Brace: No Comments Mobility Comments Supine to sit SBA with HOB elevated ~40D. STS from bed CGA with FWW. She ambulated ~ 15' in room SBA with step to gait. Pt used commode, required assist from nursing. Pt ambulated back to bed. Sit to supine Stanislaw for LE's. Pt was left in bed, all needs met . Gait Assessment Gait Gait Assistance Required: Standby Assistance Distance (Feet) 15 Able to Maintain Weight Bearing Status Yes During Gait Assistive Devices Assistive Device Gait Belt,Front Wheeled Walker Orthotic/Prosthetic Devices or Brace: No Gait Deviations General Gait Pattern Antalgic,Decreased Stride Length,Decreased Feet Clearance,Wide Based Gait Factors Limiting Gait Function Factors Limiting Gait Function Decreased Activity Tolerance, Decreased Strength,Difficulty Following Directions,Limited Range of Motion,Pain,Poor Balance,Poor Safety Awareness Comments Gait Comments See mobility comments Stair Climbing Assessment Comments Stair Climbing Comments Did not attempt this session. Performed in AM. PT-Balance Assessment Sitting Balance and Reactions Static Sitting Balance Ability Normal Dynamic Sitting Balance Ability Good Standing Balance and Reactions Static Standing Balance Ability Good Dynamic Standing Balance Ability Fair Device Used FWW M5 PT-IP Objective Assessments Start: 07/29/23 16:35 Freq: NEEDED Status: Active Protocol: Document 07/29/23 15:30 AB (Rec: 07/29/23 16:53 AB [id number]) Orientation Orientation/Cognition Level of Alertness Alert Orientation Name,Place,Situation Language Function Ability No Deficits Noted Safety Awareness Decreased Safety Awareness Memory Description Short Term Impaired Gross Range of Motion Lower Extremity ROM Assessment Within Functional Limits Impairments R knee valgus Strength Lower Extremity Strength Assessment Left Impaired Hip 3-/5 Knee 3+/5 Sensation Assessment Sensation Gross Sensation WNL Muscle Tone Muscle Tone WNL Yes M6 PT-IP Treatment Start: 07/29/23 16:35 Freq: NEEDED Status: Active Protocol: Document 07/30/23 14:44 TS (Rec: 07/30/23 14:52 [id number]) Physical Therapy Treatment Education Education Provided Precautions,Weight Bearing Status,Post-Op Packet,Safety M7 PT-IP Assessment and Plan Start: 07/29/23 16:35 Freq: NEEDED Status: Active Protocol: Document 07/30/23 14:44 TS (Rec: 07/30/23 14:52 [id number]) PT Summary Assessment and Plan Potential Rehabilitation Potential Fair Summary Impairments Pain,ROM,Strength,Balance, Coordination,Sensation,Tone, Cognition,Bed Mobility, Transfers,Gait,Activity Tolerance Progress Towards Goals Progressing Toward Goals Assessment Summary Mt continues to mobilize well. She is SBA/Stanislaw for bed mobility. She continues to ambulate short distances in room with step to gait and FWW . She has no buckling or LOB with standing or gait. PT continues to recommending home 29/11 assist. Goals Bed Mobility Goal Standby Assistance Transfer Goal Standby Assistance,Front Wheeled Walker Gait Goal Standby Assistance,Front Wheel Walker Gait Distance 150 Other Goals improve bed mobility, transfers, ambulation using 4WW/LRAD ~ 200 ft mod I up/down 1 step using FWW/4WW SBA Days to Meet Goals 5 Frequency of Treatment Frequency Of Treatment Twice a Day Treatment Plan Physical Therapy Treatment Plan Bed Mobility Training,Transfer Training,Gait Training, Therapeutic Exercise,Balance Retraining,Post Op Education, Discharge Planning,Hot or Cold Pack,Neuromuscular Re-ed, Coordination Retraining,Manual Therapy Precautions Anterior Hip Precautions No Hip Extension,No Hip External Rotation Weight Bearing Status Weight Bearing Status Weight Bear as Tolerated Allowed Weight Bearing Amount (enter % LLE WBAT or #) (%) Recommendations To Nursing Amount of Assist Needed 1 Person Assist Discharge Recommendations PT Discharge Recommendations Home with 29/11 Assist Available,Home Health, Outpatient PT Other Discharge Recommendations Will need FWW on 07/30. Order has been placed. Equipment Needed for Home Before FWW Discharge Transportation Needs at Discharge Private Vehicle
[2023-07-30 20:00] VITALS: BP 112/40; PULSE 94; RESP 17; TEMP 36.6; O2SAT 96
[2023-07-31] MEDS: IBUPROFEN 600 MG TABLET PO ×2 (00:09→06:12)
[2023-07-31] MEDS: ACETAMINOPHEN 325 MG TABLET 975 MG PO ×2 (03:11→09:32)
[2023-07-31] MEDS: ONDANSETRON 4 MG/2 ML INJ IV (03:20)
[2023-07-31] MEDS: LEVOTHYROXINE 137 MCG TABLET PO (06:12)
[2023-07-31] MEDS: SODIUM CHLORIDE 0.9% FLUSH 10 ML IV (08:11)
[2023-07-31] MEDS: ASPIRIN EC 81 MG TABLET PO (08:11)
--- NOTE | 2023-07-31 09:24 | PT.IPTN ---
Current Diagnoses Unilateral primary osteoarthritis, left hip (07/29/23) Surgery Performed Operation Date: 07/29/23 07:45 Actual Procedures p Total Hip Arthroplasty/Anterior Approach(Left) - Dinesh Rodriguez MD Physical Therapy Treatment Note M2 PT-IP Current Condition Start: 07/29/23 16:35 Freq: NEEDED Status: Active Protocol: Document 07/29/23 15:30 AB (Rec: 07/29/23 16:53 AB [id number]) Physical Therapy Current Condition Current Condition Evaluation Date 07/29/23 Treatment Diagnosis s/p L HILARIO anterior; difficulty in walking Onset Date 07/29/23 M3 PT-IP Subjective Start: 07/29/23 16:35 Freq: NEEDED Status: Active Protocol: Document 07/31/23 08:40 MB (Rec: 07/31/23 09:24 MB [id number]) Subjective Physical Therapy Visit Type Type Treatment Note Visit Start Time 08:40 Visit Stop Time 09:18 Number of RELAY CHECKER Visits 0 Physical Therapy Visit Comments Patient Comments Can I get one of those seats as well? Pt is asking for hospital BSC to take home Therapy Pain Assessment Pain Present Pain Present Denied Pain M4 PT-IP Mobility and Gait Start: 07/29/23 16:35 Freq: NEEDED Status: Active Protocol: Document 07/31/23 08:40 MB (Rec: 07/31/23 09:24 MB [id number]) PT-Transfer Assessment Sit to and From Stand Sit to and from Stand Standby Assistance,1 Person Assistance,Use of Upper Extremities Equipment Transfer Assistive Device Gait Belt,Front Wheeled Walker Orthotic/Prosthetic Devices or Brace: No Comments Mobility Comments Pt denies pain and then states ouch when gently extending B LEs and pt reports old injury right leg and that it was reset improperly and discomfort in left knee with moving leg Gait Assessment Gait Gait Assistance Required: Standby Assistance Distance (Feet) 100 Able to Maintain Weight Bearing Status Yes During Gait Assistive Devices Assistive Device Gait Belt,Front Wheeled Walker Orthotic/Prosthetic Devices or Brace: No Gait Deviations General Gait Pattern Antalgic,Decreased Stride Length,Decreased Feet Clearance,Wide Based Gait Factors Limiting Gait Function Factors Limiting Gait Function Decreased Activity Tolerance, Limited Range of Motion,Pain, Poor Balance,Poor Safety Awareness Comments Gait Comments Pt increases gait today and walks down to step area and back: at least 100'x2 with SBA , slow and antalgic gait with wide KEVIN and step-to gait today. Stair Climbing Assessment Evaluation Level of Assist On Stairs Contact Guard Assistance,1 Person Assistance Devices Stair Climbing Assistive Devices Front Wheel Walker Technique/Endurance Stair Climbing Direction Ascend and Descend Stair Climbing Technique Step to Step Number of Steps Climbed 1 Comments Stair Climbing Comments Pt states that she only has one platform step to enter and so practiced this with RW today PT-Balance Assessment Sitting Balance and Reactions Static Sitting Balance Ability Normal Dynamic Sitting Balance Ability Good Standing Balance and Reactions Static Standing Balance Ability Good Dynamic Standing Balance Ability Fair Device Used FWW M5 PT-IP Objective Assessments Start: 07/29/23 16:35 Freq: NEEDED Status: Active Protocol: Document 07/29/23 15:30 AB (Rec: 07/29/23 16:53 AB [id number]) Orientation Orientation/Cognition Level of Alertness Alert Orientation Name,Place,Situation Language Function Ability No Deficits Noted Safety Awareness Decreased Safety Awareness Memory Description Short Term Impaired Gross Range of Motion Lower Extremity ROM Assessment Within Functional Limits Impairments R knee valgus Strength Lower Extremity Strength Assessment Left Impaired Hip 3-/5 Knee 3+/5 Sensation Assessment Sensation Gross Sensation WNL Muscle Tone Muscle Tone WNL Yes M6 PT-IP Treatment Start: 07/29/23 16:35 Freq: NEEDED Status: Active Protocol: Document 07/31/23 08:40 MB (Rec: 07/31/23 09:24 MB [id number]) Physical Therapy Treatment Education Education Provided Precautions,Weight Bearing Status,Post-Op Packet,Safety Other Treatments Other Treatment Performed Pt verbalizes hip precautions, ed pt that she can ask at the [facility] [employer] about BSC or she can order only. Obtained order and RW for pt and delivered to room. M7 PT-IP Assessment and Plan Start: 07/29/23 16:35 Freq: NEEDED Status: Active Protocol: Document 07/31/23 08:40 MB (Rec: 07/31/23 09:24 MB [id number]) PT Summary Assessment and Plan Potential Rehabilitation Potential Fair Summary Impairments Pain,ROM,Strength,Balance,Bed Mobility,Transfers,Gait, Activity Tolerance Progress Towards Goals Progressing Toward Goals Assessment Summary Pt has improved gait distance and practiced the steps twice during adm. RW delivered to room. She will have son assist at d/c. Will d/c acute PT and recommend ongoing PT at d/c HH or OPPT. Goals Bed Mobility Goal Standby Assistance Transfer Goal Standby Assistance,Front Wheeled Walker Gait Goal Standby Assistance,Front Wheel Walker Gait Distance 150 Other Goals improve bed mobility, transfers, ambulation using 4WW/LRAD ~ 200 ft mod I up/down 1 step using FWW/4WW SBA Days to Meet Goals 5 Frequency of Treatment Frequency Of Treatment Discharge Treatment Plan Physical Therapy Treatment Plan Bed Mobility Training,Transfer Training,Gait Training, Therapeutic Exercise,Balance Retraining,Post Op Education, Discharge Planning,Hot or Cold Pack,Neuromuscular Re-ed, Coordination Retraining,Manual Therapy Precautions Anterior Hip Precautions No Hip Extension,No Hip External Rotation Weight Bearing Status Weight Bearing Status Weight Bear as Tolerated Allowed Weight Bearing Amount (enter % LLE WBAT or #) (%) Recommendations To Nursing Amount of Assist Needed 1 Person Assist Discharge Recommendations PT Discharge Recommendations Home with 29/11 Assist Available,Home Health, Outpatient PT Equipment Needed for Home Before FWW Discharge Transportation Needs at Discharge Private Vehicle
--- NOTE | 2023-07-31 09:33 | PM.PN.1 ---
Subjective Subjective Interval history: Patient is status post left hip surgery doing very well without any complaints. Exam Vital Signs (past 8 hours): Oxygen Delivery Method Room Air Oxygen Flow Rate 0 Narrative Exam Narrative: Incision is clean and dry. No sign of any drainage. Positive dorsiflexion and plantar flexion. Tender to palpation to the posterior aspect calf. Palpable pedal pulses. Objective Labs 07/30/23 06:24 PFSH Medical History History of COVID-19 (~02/2023) Macular degeneration of both eyes Stasis dermatitis Pulmonary embolism (2009) Factor V Leiden Osteoporosis Hypothyroidism Osteoarthritis IBS (irritable bowel syndrome) Embolism (~2016) HTN (hypertension) Surgical History Hx of foot surgery History of carpal tunnel surgery of left wrist History of carpal tunnel surgery of right wrist History of open reduction and internal fixation (ORIF) procedure (04/2022) History of total right hip replacement (~2012) History of hysterectomy Social History household members: family Smoking Status: Former smoker alcohol intake: current Assessment & Plan Assessment & Plan narrative: Patient doing very well after a left total hip surgery. Patient will be discharged home today. Quality VTE Deep Vein Thrombosis/Pulmonary Embolism Present on Admission: No
[2023-07-31 09:40] VITALS: BP 119/43; PULSE 89; RESP 16; TEMP 36.1; O2SAT 98
--- NOTE | 2023-07-31 11:57 | CM.DPC ---
DCP Discharge Home Per Ortho, pt medically stable to d/c home today with family and outpt f/u and no identified barriers to discharge. Per PT, recommending safe home with son assist and requesting FWW order and issued pt FWW today bedside for home use and no further concerns at this time. SW updated RN and pt just awaiting son to arrive for transport home. Plan: Patient to d/c home today via son POV and outpt f/u and no further SW needs at this time. Margarita Wong MSW
--- NOTE | 2023-07-31 12:08 | CM.MNRNOTE ---
Pt discharged home at 1200, escorted off floor in wheelchair accompanied by son and hospital staff. IV removed, discharge teaching completed including medication review, wound care, anterior hip precautions and follow up appointments. Questions answered and concerns addressed. Patient left the floor with all belongings.
== END 2023-07-31 12:10 | disposition home or self-care (01) ==
LOC: OR 06:09 → AC 06:14
PROVIDERS: Anesthesiology; PCP Internal Medicine; Referring Provider Orthopaedic Surgery Adult Reconstructive Orthopaedic Surgery; Visit Provider Orthopaedic Surgery Adult Reconstructive Orthopaedic Surgery
PROC: (CPT 27130; principal; 2023-07-29 07:45)
DX: M16.12 Unilateral primary osteoarthritis, left hip (principal)
CPT/HCPCS: 27130; 36415; 73502; 73503; 76000; 85014; 85018; 85610; 86850; 86900; 86901; 97116; 97162; 97165; 97530; 97535; C1776; J0171; J0690; J1100; J2405; J2704; J3010

== ENCOUNTER 2024-02-17 11:51 | Inpatient (IN) | payer OTHER, SELFPAY ==
[2023-07-29 12:14] VITALS: BMI 29.7
[2024-02-06 12:49] VITALS: BMI 29.7
[2024-02-17] VITALS (10 sets, daily range): BP systolic 130–175; BP diastolic 43–88; PULSE 63–97; RESP 12–18; TEMP 30.4–37.1; O2SAT 89–98; BMI 29.7
--- NOTE | 2024-02-17 06:00 | DI.RAD.S_ITS ---
PROCEDURE: XR KNEE RT 1TO2V INDICATIONS: TKA TECHNIQUE: 4 view(s) of the knee acquired. COMPARISON: [facility], [place], XR KNEE 4+ VIEWS RIGHT, 11/17/2023, 11:56. FINDINGS: Bones: Patient is status post knee joint arthroplasty. Hardware components are in expected positions. Visualized bony structures are intact. Prior fracture at the proximal fibula. Tibial intramedullary myranda with screw fixation. The most superior screw has been removed. Soft tissues: Overlying postoperative changes are noted. IMPRESSION: Satisfactory appearance of the right knee arthroplasty. Dictated by: Jg Cooney M.D. on 02/19/2024 at 21:36 Approved by: Jg Cooney M.D. on 02/19/2024 at 21:38
[2024-02-17] MEDS: MELOXICAM 7.5 MG TABLET 15 MG PO (12:43)
[2024-02-17] MEDS: ACETAMINOPHEN 325 MG TABLET 975 MG PO (12:43)
[2024-02-17] MEDS: FAMOTIDINE 20 MG/2 ML VIAL IV (12:45)
[2024-02-17] MEDS: CEFAZOLIN 2 GM/100 ML PREMIX 100 ML IV ×2 (14:00→17:19)
[2024-02-17] MEDS: TRANEXAMIC ACID 1,000 MG VIAL 2000 MG INJ ×2 (14:05→17:01)
--- NOTE | 2024-02-17 14:21 | SUR.OPER ---
Supine on padded OR bed. Pillow under head, arms secured on padded armboards <90 degree abduction. Safety belt across torso. Non-operative leg secured with tape over blanket over lower leg. Operative leg secured in DeMayo/Lenin/Nathe positioner. Foam padded brace at thigh of operative leg.
[2024-02-17] MEDS: ROPIVACAINE/EPI/CLONIDINE/KET 50 ML SYRINGE INJ (14:34)
--- NOTE | 2024-02-17 17:00 | PC.NURSE ---
Day shift: Not in room 210 at this time (1700).
[2024-02-17] MEDS: LACTATED RINGERS 1,000 ML 42 ML IV (17:29)
--- NOTE | 2024-02-17 17:47 | P.OP_ITS ---
Operative Date/Time/Diagnoses Date of procedure: 02/17/24 Pre-op diagnosis: Right knee osteoarthritis, tibial malunion, retained tibial hardware Post-op diagnosis: same Procedure & Clinicians Procedure: Right total knee arthroplasty with deformity correction through tibial cut compensating for tibial shaft deformity as well as removal of a single screw from prior tibial nail (90706-80) Same procedure as scheduled: Yes Surgeon: Dinesh Rodriguez Tanker Service Attendant: Rylie Lyman Anesthesia Type: General, Spinal, Peripheral nerve block and Local Operative Notes Estimated Blood Loss (mL): 150 Procedure in detail: Right total knee arthroplasty with long stems on tibia and femur, CCK articulation, and deformity correction of tibial shaft malunion through the knee joint with removal of the single screw from prior tibial nail Implants: * Size 7 persona revision femoral component with 14 mm x 75 mm stem and 5 mm posterior lateral augment * Size C persona revision Tibial Component with 14 mm x 75 mm stem with the bottom of the stem cut off * Size 10 CCK Polyethylene Insert * Unresurfaced Patella Procedure Summary: This 83-year-old female patient had a history of a prior tibial shaft fracture for which she underwent intramedullary nailing and had a malunion through the fracture site. I measured her preoperative deformity on her hip knee ankle scanogram at 20?. I intended to address the deformity through my tibial cut in addition to addressing her arthritic knee. I performed a measured resection total knee arthroplasty using 3? of external rotation on the femur and prepped for a revision femoral component prior to working on the tibia. On the tibial side I used the extramedullary guide to plan a tibial cut which would result in correction of the downstream deformity. Additionally took slope out of the tibia in order to point the tibial cut more posteriorly. After making these cuts I did find that as anticipated the knee was highly imbalanced with significant medial laxity. This was compensated for by the use of a an extensive posterolateral release including release of the ITB band and the use of a CCK insert to compensate for her coronal plane imbalance. I undersized the tibial component to allow myself to position it more posteriorly behind the nail and found that a 75 mm stem almost made it down far enough for the tibial component to sit flush with the tibial cut so I cut off the end of the stem on the back table with a bur to allow it to sink far enough down to rest flush on the tibial cut. I had previously performed a left total hip arthroplasty on her and noted very poor bone quality during that procedure, and accordingly used a cemented stem for it. I noted osteoporotic bone during today's procedure as well. At the conclusion of the procedure she had no medial laxity remaining as the CCK insert resolved this. She had appropriate patellar tracking, well- balanced flexion and extension gaps, and a straight leg. She has Factor V Leiden and takes Xarelto 20 mg daily. She will resume this dose on postoperative day 2. Because of this aggressive anticoagulation I will have her utilize a knee immobilizer temporarily to allow her wound to heal. Procedure in Detail: This patient was seen preoperatively and evaluated for knee pain which was refractory to numerous nonoperative treatment modalities. Their pain correlated with radiographic changes demonstrating significant degeneration in the knee joint. The risks and benefits of continued nonoperative management versus operative management were discussed at length and all of the patient?s questions were answered. Additional educational materials providing further details beyond our discussion in clinic were provided via a publicly available patient education video which included the incidence of medical complications associated with total knee arthroplasty, reasons for revision following total knee arthroplasty, and patient satisfaction rates following total knee arthroplasty. That video can be accessed at [email or web address] . With this understanding of the risks inherent to the procedure, the patient elected to move forward with operative management. Following preoperative optimization, the patient was scheduled for surgery. The patient was met in the preoperative holding area the day of the procedure and all questions were answered. The patient?s nares were swabbed with betadine in order to decolonize them from MRSA. Informed consent was signed and the right limb was marked with indelible ink.? The patient was brought back to the operating room where anesthesia was induced. The patient was transferred to the operating table and all bony prominences were padded. The operative site was prepped and draped in the usual sterile fashion. A second prep stick was utilized following drape placement. The incision was marked corresponding to the medial aspect of the tibial tubercle and the patella. Ioban was wrapped circumferentially around the knee. Prior to incision, tranexamic acid and cefazolin were administered. Templating images were displayed. A timeout procedure was performed verifying the patient?s identity, medical comorbidities, allergies, relevant medications, anesthesia type and the surgical plan. All present were in agreement. The assistance of a physician pastoral assistant was required for positioning, room setup, soft tissue retraction and wound closure. Without this assistance, the procedure would have been significantly more challenging and time consuming.?? The tourniquet was inflated prior to incision. I made an anterior incision over the knee, dissected through the subcutaneous tissues and identified the lateral border of the VMO. Medial and lateral soft tissue flaps were developed. A medial parapatellar arthrotomy was performed ensuring that adequate capsular tissue would remain for closure at the conclusion of the procedure. The hip was brought into extension and the medial soft tissues were released off the joint line of the tibia. Tissue overlying the distal anterior femur was released to allow for later assessment for anterior notching but left in place. A portion of the retropatellar fat pad was excised while protecting the patellar tendon. The patella was everted. The patella was not resurfaced. Osteophytes were excised and a lateral facetectomy was performed. The patella was released from its everted position.??I identified the most proximal interlock from the nail and removed it using the corresponding [employer] screwdriver. I placed bone wax in the hole that was left from removal of that screw. I flexed the knee to 90 degrees and placed retractors to allow access to the notch. An opening reamer was used to gain access to the femoral canal and an intramedullary myranda was introduced into the canal. Diaphyseal fit was obtained in order to allow a distal femoral resection at 6 degrees relative to the anatomic axis, thereby aiming to achieve mechanical alignment of the eventual implant. This corresponded to the angle of the stems coming off of the femoral housing for the revision system. A +2 resection was planned and assessed using an edy wing. I then made the cut using a sagittal saw. This provided additional access to the femoral notch. The ACL and PCL were excised. Retractors were placed on the lateral and medial tibia. Used a measured resection external rotation guide to prepare for a 3 degree external rotation cut off of the femur while protecting the soft tissues medially and laterally. I sized for a size 7 femur and made this corresponding anterior-posterior and chamfer cuts. I removed the 4 in 1 block and placed a housing for the femoral stem on the cut end of the femur. I reamed for the 75 mm stem. I found that the Reamer for the Stubby stem was able to pass easily but the 75 mm Reamer was not able to get all the way down I then moved onto the tibia. I exposed the tibia and carefully planned my cut with an extramedullary guide. I knew that my cut would take more medially than laterally based on my preoperative template but wanted to take a small a cut as possible to maximize the amount of space I would have before running into the nail so I took a 2 mm cut off of the anterior lateral portion of the tibia. I pushed the extramedullary guide all the way into the randall to minimize the slope that it would be cut in so as to point the tibial base plate more posteriorly away from the nail. Ensured that it was centered over the ankle distally so as to address the downstream deformity through the tibial resection. I positioned retractors around the knee and performed the tibial cut. I then prepped the tibia. I intentionally undersized by 1 size to allow myself to position the base plate more posteriorly on the femur to avoid interference with the nail. Trial components were placed and the construct was assessed. I cut the box for the femur and noted during that process that while removing osteophytes from the lateral tibia I had ostetomed away enough lateral bone that an augment was needed. I prepped for and trialed with that augment. I was not able to get the [address] down so I trialed using a Stubby stem. I found that there was, as anticipated, significant medial laxity. I intended to address this through the articulation.??The CCK trial would lift off of the base plate medially when that compartment was stressed so I felt that it was appropriate to use that articulation. Based on the inability to fully seat the 75 mm stem trial and the inability to drill all the way down with the 75 mm Reamer I presumed that I was either interfering with the nail or the posterior cortex or possibly both distally. In order to address this I opened the 75 mm stem and took it to the back table where I cut off the end of the stem and formed anterior and posterior chamfers using a high-speed bur. I doused the stem in normal saline to clear off all of the metal debris and changed my gloves and also applied a protective outer layer to my gown to keep from getting metal shavings into the wound with the final construct. Inserted the tibial component after it had been assembled and found that it still sat up slightly and therefore did returned to the back table for additional burring until I could get it to seat fully. At that time I prepared for cementation The bony ends were irrigated and cement was prepared. Portions of the anterior chamfer cut were utilized as cement restrictors in the femur and tibia where intramedullar rods had been utilized. Cement was placed on the entirety of the undersurface of both the tibial and femoral components. Cement was placed onto the dry tibia and pressurized into the cancellous bone. I impacted the tibial component into place. Cement was removed. The tibia was reduced underneath the femur and placed cement onto the dry surface of the resected femur. I placed the femoral component as well as the intended polyethylene trial. Cement was removed from around the femur. I brought the knee into extension and manually pressurized the construct by pushing on the heel while the cement dried. The knee was bathed in a dilute mixture of betadine and peroxide. A mixture of Ropivacaine, Epinephrine, Clonidine and Toradol was infiltrated throughout the soft tissues into structures including the VMO, patellar tendon, quadriceps tendon, MCL and femoral periosteum. A low adductor canal block was also performed using this mixture unless one had been placed preoperatively by anesthesia. The knee was copiously irrigated with pulse lavage. Once cement had been allowed to dry the knee was again trialed. Range of motion was assessed by ensuring the knee could achieve full extension and assessing maximum passive knee flexion by elevating the femur and allowing the heel to passively fall towards the buttock. Gap symmetry was assessed by stressing the medial and lateral compartments in both extension and flexion. Laxity was assessed in both extension and flexion and the polyethylene trial was adjusted with shims as necessary. Patellar tracking was assessed with knee flexion. The tourniquet was let down and the polyethylene trial was removed. I inspected the knee inspected for excess cement and any residual bleeding. Once hemostasis was achieved I inserted the final polyethylene and ensured appropriate engagement of the dovetail locking mechanism.?? The arthrotomy was closed with absorbable interrupted suture ensuring that this extended to the top of the arthrotomy. This was backed up with running barbed suture throughout the arthrotomy. The skin was closed with 2-0 and 3-0 sutures. Surgical glue was applied and a soft dressing was placed.?The sponge, instrument and needle counts were reported as being correct at the end of the case.??No obvious complications occurred. The patient was transferred from the operating table back to a stretcher. The patient emerged from anesthesia without difficulty and was taken to the PACU in a stable condition.? Plan for aftercare: * Weightbearing as tolerated * Sia incisional wound VAC was placed and should remain in place until follow up. The battery will after a week at which time the cord can be removed and it can be used as a normal dressing until follow up * I have placed the patient into a knee immobilizer for soft tissue rest because of her intensive anticoagulation for her factor 5 Leiden. I intend for this to remain in place anytime she is up moving around. If she is relaxing with her leg straight she does not need to have it in place * Patient will take aspirin 81 mg twice per day tomorrow for DVT prophylaxis and then resume her baseline dosage of 20 mg Xarelto daily on Tuesday * Multimodal pain regimen with no IV opioids ordered * Anticipate discharge home tomorrow or Tuesday * Follow up at [facility] in 2 weeks * Detailed postoperative instructions available at [email or web address]
[2024-02-17] MEDS: HYDROMORPHONE 1 MG INJ IV (18:02)
[2024-02-17] MEDS: BENZOCAINE/MENTHOL 1 LOZ PKT 1 EACH PO (18:09)
--- NOTE | 2024-02-17 18:47 | PC.NURSE ---
Day shift: Pt in room from PACU at approx 1835. She is A&Ox4. PPP and CMS ok. Oriented to room and call light. Agrees to not get OOB without help from staff. VS WNL. Given warm tea for complaints of soar throat. Will continue with post-op plan of care. 2L NC 98%.
[2024-02-17] MEDS: ONDANSETRON 4 MG/2 ML INJ IV (21:40)
[2024-02-17] MEDS: ACETAMINOPHEN 325 MG TABLET 650 MG PO (21:42)
[2024-02-17] MEDS: DOCUSATE 100 MG CAPSULE PO (21:42)
[2024-02-17] MEDS: atenoloL 25 MG TABLET PO (21:42)
[2024-02-17] MEDS: ASPIRIN EC 81 MG TABLET PO (21:43)
[2024-02-17] MEDS: IBUPROFEN 600 MG TABLET PO (21:43)
[2024-02-17] MEDS: LACTATED RINGERS 1,000 ML 100 ML IV (21:44)
[2024-02-18] MEDS: ACETAMINOPHEN 325 MG TABLET 650 MG PO ×4 (01:16→18:09)
[2024-02-18] MEDS: OXYCODONE IR 5 MG TABLET PO ×4 (01:16→21:15)
[2024-02-18] MEDS: IBUPROFEN 600 MG TABLET PO ×4 (01:17→18:10)
[2024-02-18] MEDS: CEFAZOLIN 2 GM/100 ML PREMIX 100 ML IV ×2 (01:17→09:11)
[2024-02-18] MEDS: LEVOTHYROXINE 137 MCG TABLET PO (06:01)
[2024-02-18 06:34] LABS: Hematocrit 34.8 % (36-46)
--- NOTE | 2024-02-18 08:47 | P.PN_ITS ---
Subjective Subjective Date Patient Seen: 02/18/24 Time Patient Seen: 08:47 Interval history: Patient's pain was severe overnight. Having more moderate pain at this time. Patient has pre ranged some home health services. Exam Vital Signs (past 8 hours): Oxygen Delivery Method Nasal Cannula Oxygen Flow Rate 0 Narrative Exam Narrative: 83-year-old female resting comfortably in bed in no apparent distress. Right knee dressing is clean, dry and intact. Sia dressing is on and functioning. Motor functions intact bilateral lower extremities. Sensation grossly intact to light touch bilateral lower extremities Const General: cooperative and comfortable Nutritional Appearance: average body habitus Orientation: alert Resp Effort & Inspection: normal respiratory effort and able to speak in complete sentences Objective Labs 02/18/24 05:50 Labs: Laboratory Results - last 24 hr 02/18/24 05:50 Hgb 12.0 Hct 34.8 L PFSH Medical History (Updated 02/06/24 @ 12:58 by Suad Hawkins RN) Bakers cyst History of COVID-19 (~02/2023) Macular degeneration of both eyes Stasis dermatitis Pulmonary embolism (2009) Factor V Leiden Osteoporosis Hypothyroidism Osteoarthritis IBS (irritable bowel syndrome) Embolism (~2016) HTN (hypertension) Surgical History (Updated 02/06/24 @ 12:55 by Suad Hawkins RN) History of total left hip arthroplasty (07/29/23) Hx of foot surgery History of carpal tunnel surgery of left wrist History of carpal tunnel surgery of right wrist History of open reduction and internal fixation (ORIF) procedure (04/2022) History of total right hip replacement (~2012) History of hysterectomy Social History household members: none Smoking Status: Former smoker alcohol intake: current Assessment & Plan Post-op Postoperative Procedures: Procedures Operation Date: 02/17/24 13:45 Actual Procedure Side Surgeon p Total Knee Arthroplasty Right Dinesh Rodriguez MD s Removal of hardware, right leg Right Dinesh Rodriguez MD Postoperative day: 1 Postoperative status: marginal pain control Postoperative plan narrative: Weightbearing as tolerated Sia incisional wound VAC was placed and should remain in place until follow up. The battery will after a week at which time the cord can be removed and it can be used as a normal dressing until follow up Knee immobilizer for soft tissue rest because of her intensive anticoagulation for her factor 5 Leiden. I intend for this to remain in place anytime she is up moving around. If she is relaxing with her leg straight she does not need to have it in place Patient will take aspirin 81 mg twice per day February 18, 2024 for DVT prophylaxis and then resume her baseline dosage of 20 mg Xarelto daily on Tuesday Multimodal pain regimen with no IV opioids ordered Follow up at [facility] in 2 weeks Detailed postoperative instructions available at [email or web address] Discharge likely tomorrow once she is confirmed her home health services will be available. Quality VTE Deep Vein Thrombosis/Pulmonary Embolism Present on Admission: No
[2024-02-18] MEDS: ASPIRIN EC 81 MG TABLET PO ×2 (09:11→20:10)
[2024-02-18] MEDS: atenoloL 25 MG TABLET PO ×2 (09:11→20:10)
[2024-02-18] MEDS: VIT C/E/ZN/COPPR/LUTEIN/ZEAXAN CAPSULE 1 CAP PO (09:11)
[2024-02-18] MEDS: DOCUSATE 100 MG CAPSULE PO ×2 (09:11→20:10)
--- NOTE | 2024-02-18 10:50 | PT.IIE ---
Current Diagnoses Unilateral primary osteoarthritis, right knee (02/17/24) Unilateral post-traumatic osteoarthritis, right knee (02/17/24) Surgery Performed Operation Date: 02/17/24 13:45 Actual Procedures p Total Knee Arthroplasty(Right) - Dinesh Rodriguez MD s Removal of hardware, right leg(Right) - Dinesh Rodriguez MD Surgical History (Last Updated 02/06/24 @ 12:55 by Suad Hawkins, RN) History of carpal tunnel surgery of left wrist History of carpal tunnel surgery of right wrist History of hysterectomy History of open reduction and internal fixation (ORIF) procedure (04/2022) History of total left hip arthroplasty (07/29/23) History of total right hip replacement (~2012) Hx of foot surgery Medical History (Last Updated 02/06/24 @ 12:58 by Suad Hawkins, RN) Bakers cyst Embolism (~2016) Factor V Leiden History of COVID-19 (~02/2023) HTN (hypertension) Hypothyroidism IBS (irritable bowel syndrome) Macular degeneration of both eyes Osteoarthritis Osteoporosis Pulmonary embolism (2009) Stasis dermatitis Physical Therapy Inpatient Evaluation/Re-Eval M1 PT/OT-IP Prior Functional Status Start: 02/18/24 12:11 Freq: NEEDED Status: Active Protocol: Document 02/18/24 10:50 AB (Rec: 02/18/24 12:31 AB [id number]) Medical Review Prior Functional Status Medical History Reviewed Yes Communication able to make needs known; pt with confusion Mobility and Gait pt stated that she was modified independent with all mobilities and ambulation using a 4WW Social History Household Members none Living Arrangements House Number of Floors (Floors) One Floor Number of Stairs To Enter/Railing? 1 step to enter Home Environment High Toilet,Walk in Shower Home Equipment Four Wheel Walker,Shower Seat with Backrest,Hand Held Shower ,Lift Recliner,Grab Bars Near Toilet,Grab Bars In Shower Additional Social History Comment pt lives in a duplex house and stated that her grand daughter lives next door and stated that she can assist her if needed but cannot stay with her pt has arranged a ([facility])caregiver to come in to assist but has not sheduled definite hours but stated that they can stay overnight with her pt has a toilet safety frame pt plans to sleep on his lift recliner for now M2 PT-IP Current Condition Start: 02/18/24 12:11 Freq: NEEDED Status: Active Protocol: Document 02/18/24 10:50 AB (Rec: 02/18/24 12:31 AB [id number]) Physical Therapy Current Condition Current Condition Evaluation Date 02/18/24 Treatment Diagnosis s/p R TKA; difficulty in walking Onset Date 02/17/24 M3 PT-IP Subjective Start: 02/18/24 12:11 Freq: NEEDED Status: Active Protocol: Document 02/18/24 10:50 AB (Rec: 02/18/24 12:31 AB [id number]) Subjective Physical Therapy Visit Type Type Initial Evaluation Visit Start Time 10:50 Visit Stop Time 11:40 Number of FUR BLOWING MACHINE OPERATOR Visits 0 Physical Therapy Visit Comments Patient Comments agreeable to do PT Therapy Pain Assessment Pain When Pain Assessed During Mobility Pain Present Pain Present Pain Reported Location Right Knee Intensity 10 Scale Used Numeric (0 - 10) Pain Management Techniques Apply Cold,Distraction, Elevation,Modification of Treatment,Re-positioning, Timing of Activity with Medications M4 PT-IP Mobility and Gait Start: 02/18/24 12:11 Freq: NEEDED Status: Active Protocol: Document 02/18/24 10:50 AB (Rec: 02/18/24 12:31 AB [id number]) PT-Bed Mobility Assessment Supine to Sit Supine to Sit Maximum Assistance PT-Transfer Assessment Sit to and From Stand Sit to and from Stand Maximum Assistance,1 Person Assistance,Use of Upper Extremities Equipment Transfer Assistive Device Gait Belt,Front Wheeled Walker Orthotic/Prosthetic Devices or Brace: No Transfers Transfer Destination Chair Transfer Technique Stand Step Pivot Comments Mobility Comments Talked with ortho PA and clarified: knee immobilizer on only when up and moving, No ROM restrictions but only do gentle ROM on RLE . pt supine in bed and agreeable to do PT. obtained PLOF and home set up. per doctor's order: R knee immobilizer on when up and moving. assisted pt and educated pt on how to don/doff knee immobilizer. BP : 144/73. pt completed supine to sit max A and max cues needing 2 attempts to sit up due to c/o increase R knee pain. pt able to sit on EOB CGA. pt refuse to use a FWW. completed sit to stand max A and cues. instructed pt to ambulate and was only able to walk ~ 2 ft using 4WW max A and requested to sit down. pt sat on chair and positioned. call light and table placed within reach. informed pt regarding assistance needed and SNF recommendation and agreed. Gait Assessment Gait Gait Assistance Required: Maximum Assistance Distance (Feet) 2 Able to Maintain Weight Bearing Status Yes During Gait Assistive Devices Assistive Device Gait Belt,4 Wheeled Walker Orthotic/Prosthetic Devices or Brace: Yes Gait Deviations General Gait Pattern Antalgic,Decreased Stride Length,Decreased Feet Clearance Factors Limiting Gait Function Factors Limiting Gait Function Decreased Activity Tolerance, Decreased Strength,Difficulty Following Directions,Limited Range of Motion,Pain,Poor Balance,Poor Safety Awareness PT-Balance Assessment Sitting Balance and Reactions Static Sitting Balance Ability Good Dynamic Sitting Balance Ability Fair Standing Balance and Reactions Static Standing Balance Ability Poor Dynamic Standing Balance Ability Poor Device Used 4WW M5 PT-IP Objective Assessments Start: 02/18/24 12:11 Freq: NEEDED Status: Active Protocol: Document 02/18/24 10:50 AB (Rec: 02/18/24 12:31 [id number]) Orientation Orientation/Cognition Level of Alertness Alert Orientation Name Language Function Ability Hard of Hearing Safety Awareness Decreased Safety Awareness Memory Description Short Term Impaired Comments with slight confusion Gross Range of Motion Lower Extremity ROM Assessment Right Impaired Impairments pain limiting movement with increase guarding Strength Lower Extremity Strength Assessment Right Impaired Hip 3+/5 Knee 3+/5 Coordination Assessment Gross Coordination Gross Coordination WNL Sensation Assessment Sensation Gross Sensation WNL Muscle Tone Muscle Tone WNL Yes M6 PT-IP Treatment Start: 02/18/24 12:11 Freq: NEEDED Status: Active Protocol: Document 02/18/24 10:50 AB (Rec: 02/18/24 12:31 AB [id number]) Physical Therapy Treatment Exercises Exercises Heel Slides Education Education Provided Precautions,Weight Bearing Status,Post-Op Packet,Safety M7 PT-IP Assessment and Plan Start: 02/18/24 12:11 Freq: NEEDED Status: Active Protocol: Document 02/18/24 10:50 AB (Rec: 02/18/24 12:31 AB [id number]) PT Summary Assessment and Plan Potential Rehabilitation Potential Fair Status of Condition at Evaluation Evolving Summary Impairments Pain,ROM,Strength,Balance, Coordination,Sensation,Tone, Cognition,Bed Mobility, Transfers,Gait,Activity Tolerance Assessment Summary pt is an 83 y/o F s/p R TKA with correction of tibial deformity POD 1. pt is WBAT but needs R knee immobilizer when up and moving. pt requiring max A with all mobilities using 4WW and unable to tolerate much activities due to c/o increase R knee pain. pt will require 24/7 assist at this time and will benefit from SNF rehab. will continue to assess progress. Goals Bed Mobility Goal Standby Assistance Transfer Goal Standby Assistance,Four Wheeled Walker Gait Goal Standby Assistance,Four Wheel Walker Gait Distance 150 Other Goals up/down 1 step using 4WW SBA Days to Meet Goals 10 Frequency of Treatment Frequency Of Treatment Twice a Day Treatment Plan Physical Therapy Treatment Plan Bed Mobility Training,Transfer Training,Gait Training, Therapeutic Exercise,Balance Retraining,Post Op Education, Discharge Planning,Hot or Cold Pack,Neuromuscular Re-ed, Coordination Retraining,Manual Therapy Precautions Brace R knee immobilizer when up and moving Weight Bearing Status Weight Bearing Status Weight Bear as Tolerated Allowed Weight Bearing Amount (enter % RLE WBAT or #) (%) Recommendations To Nursing Amount of Assist Needed 1 Person Assist Discharge Recommendations PT Discharge Recommendations Home with 24/7 Assist Available,Home Health,SNF Rehab,Home vs SNF Transportation Needs at Discharge Private Vehicle,Wheelchair/ Cabulance
[2024-02-18 12:10] VITALS: BP 143/64; PULSE 77; RESP 17; TEMP 36.4; O2SAT 97
--- NOTE | 2024-02-18 13:50 | PT.IPTN ---
Current Diagnoses Unilateral primary osteoarthritis, right knee (02/17/24) Unilateral post-traumatic osteoarthritis, right knee (02/17/24) Surgery Performed Operation Date: 02/17/24 13:45 Actual Procedures p Total Knee Arthroplasty(Right) - Dinesh Rodriguez MD s Removal of hardware, right leg(Right) - Dinesh Rodriguez MD Physical Therapy Treatment Note M2 PT-IP Current Condition Start: 02/18/24 12:11 Freq: NEEDED Status: Active Protocol: Document 02/18/24 10:50 AB (Rec: 02/18/24 12:31 AB [id number]) Physical Therapy Current Condition Current Condition Evaluation Date 02/18/24 Treatment Diagnosis s/p R TKA; difficulty in walking Onset Date 02/17/24 M3 PT-IP Subjective Start: 02/18/24 12:11 Freq: NEEDED Status: Active Protocol: Document 02/18/24 13:50 AB (Rec: 02/18/24 14:55 AB [id number]) Subjective Physical Therapy Visit Type Type Treatment Note Visit Start Time 13:50 Visit Stop Time 14:16 Number of CERTIFIED TECHNICIAN Visits 0 Physical Therapy Visit Comments Patient Comments agreeable to do PT Therapy Pain Assessment Pain When Pain Assessed During Mobility Pain Present Pain Present Pain Reported Location Right Knee Scale Used pain scale not stated Description Burning Pain Management Techniques Distraction,Modification of Treatment,Re-positioning, Timing of Activity with Medications M4 PT-IP Mobility and Gait Start: 02/18/24 12:11 Freq: NEEDED Status: Active Protocol: Document 02/18/24 13:50 AB (Rec: 02/18/24 14:55 AB [id number]) PT-Bed Mobility Assessment Supine to Sit Supine to Sit Minimal Assistance,Maximum Assistance,1 Person Assistance ,Bedrails Sit to Supine Sit to Supine Maximum Assistance,1 Person Assistance,Bedrails PT-Transfer Assessment Sit to and From Stand Sit to and from Stand Moderate Assistance,Maximum Assistance,1 Person Assistance ,Use of Upper Extremities Equipment Transfer Assistive Device Gait Belt,4 Wheeled Walker Orthotic/Prosthetic Devices or Brace: Yes Transfers Transfer Destination Bed,Toilet Transfer Technique ambulated Transfer Ability Level of Assist Minimal Assistance,1 Person Assistance,Use of Upper Extremities Comments Mobility Comments pt sitting on the chair. Workers from [facility] in with pt and stated that they are establishing pt's care for when she d/c. stated that for now, pt will get 24/7 assist for 3 days and will reassess afterwards. directed [employer] to talk with case loader operator. pt agreed to do PT. BP: 140/ 68. reviewed donning of knee immobilizer with pt and pt unable to recall. assisted pt with knee immobilizer. pt completed sit to stand from the chair max A and max cues. pt ambulated in room using 4WW ~ 35 ft min A and cues. pt sat on EOB. completed sit to supine max A and max cues. max A for elevating RLE up to bed. upon laying down, pt stated that she needs to use the toilet. completed supine to sit max A and cues and used bed rail to assist. sit to stand from EOB mod A and max cues. pt ambulated to the toilet using 4WW min A. max A for controlled descent to the toilet using grab bar. pt also needed assist for brief management. call light placed next to pt and instructed to call for assist when ready. informed [facility] that pt is using the toilet. Gait Assessment Gait Gait Assistance Required: Minimum Assistance Distance (Feet) 35 Able to Maintain Weight Bearing Status Yes During Gait Assistive Devices Assistive Device Gait Belt,4 Wheeled Walker Orthotic/Prosthetic Devices or Brace: Yes Gait Deviations General Gait Pattern Antalgic,Decreased Stride Length,Decreased Feet Clearance,Step-to Gait Factors Limiting Gait Function Factors Limiting Gait Function Decreased Activity Tolerance, Decreased Strength,Difficulty Following Directions,Limited Range of Motion,Pain,Poor Balance,Poor Safety Awareness M5 PT-IP Objective Assessments Start: 02/18/24 12:11 Freq: NEEDED Status: Active Protocol: Document 02/18/24 10:50 AB (Rec: 02/18/24 12:31 AB [id number]) Orientation Orientation/Cognition Level of Alertness Alert Orientation Name Language Function Ability Hard of Hearing Safety Awareness Decreased Safety Awareness Memory Description Short Term Impaired Comments with slight confusion Gross Range of Motion Lower Extremity ROM Assessment Right Impaired Impairments pain limiting movement with increase guarding Strength Lower Extremity Strength Assessment Right Impaired Hip 3+/5 Knee 3+/5 Coordination Assessment Gross Coordination Gross Coordination WNL Sensation Assessment Sensation Gross Sensation WNL Muscle Tone Muscle Tone WNL Yes M6 PT-IP Treatment Start: 02/18/24 12:11 Freq: NEEDED Status: Active Protocol: Document 02/18/24 13:50 AB (Rec: 02/18/24 14:55 AB [id number]) Physical Therapy Treatment Education Education Provided Precautions,Safety M7 PT-IP Assessment and Plan Start: 02/18/24 12:11 Freq: NEEDED Status: Active Protocol: Document 02/18/24 13:50 AB (Rec: 02/18/24 14:55 AB [id number]) PT Summary Assessment and Plan Potential Rehabilitation Potential Fair Summary Impairments Pain,ROM,Strength,Balance, Coordination,Sensation,Tone, Cognition,Bed Mobility, Transfers,Gait,Activity Tolerance Progress Towards Goals Slow Progress due to Medical Issues,Slow Progress due to Activity Tolerance,Slow Progress - Other Assessment Summary pt improving slowly and was able to ambulate ~ 35 ft this afternoon using 4WW. pt will continue to need 24/7 care. spoke with [facility] and will provide 24/7 assist to pt for the 3 days after d/c and will reassess for further care afterwards. pt will need HHPT. will continue to assess. Goals Bed Mobility Goal Standby Assistance Transfer Goal Standby Assistance,Four Wheeled Walker Gait Goal Standby Assistance,Four Wheel Walker Gait Distance 150 Other Goals up/down 1 step using 4WW SBA Days to Meet Goals 10 Frequency of Treatment Frequency Of Treatment Twice a Day Treatment Plan Physical Therapy Treatment Plan Bed Mobility Training,Transfer Training,Gait Training, Therapeutic Exercise,Balance Retraining,Post Op Education, Discharge Planning,Hot or Cold Pack,Neuromuscular Re-ed, Coordination Retraining,Manual Therapy Precautions Brace R knee immobilizer when up and moving Weight Bearing Status Weight Bearing Status Weight Bear as Tolerated Allowed Weight Bearing Amount (enter % RLE WBAT or #) (%) Recommendations To Nursing Amount of Assist Needed 1 Person Assist Discharge Recommendations PT Discharge Recommendations Home with 24/7 Assist Available,Home Health Transportation Needs at Discharge Private Vehicle,Wheelchair/ Cabulance
--- NOTE | 2024-02-18 14:32 | CM.DANOTE ---
Initial DCP Assessment Note Pt is an 83 yo female, resident of [place], s/p Right TKA/Hardware removal. PCP: [facility] , patient says her provider just left the practice Payer: Paige KALEB Reviewed chart, met w/patient to introduce self and role. Mild confusion noted. Patient reports she lives independently and has hired [facility] to provide 24/7 caregiving in her home to assist her throughout her recovery. When asked how long [facility] will be helping, patient reports they can help as long as she needs them. Patient plans to get transportation from family vs her caregivers to her outpatient PT appointments. Gosia, PT reports to this [facility] the recommendation is currently for SNF vs Home 24/7 assist. Received the business card for Marjan Andujar, Customer Service Dispatcher with [employer] [phone], Marjan has offered assistance with coordination of care efforts as needed. Plan: Discharge home w/ 24/7 caregivers anticipated, HH vs outpatient PT, this per patient's wishes. CM team will plan to follow clinical course and therapy recommendations closely. ELINOR Chavarria Discharge Planning/Care Management CM Discharge Assessment Start: 02/18/24 14:29 Freq: Status: Active Protocol: Document 02/18/24 14:29 CHELSEA (Rec: 02/18/24 14:32 CHELSEA [id number]) Discharge Planning Assessment Assigned Encoding Clerk ELINOR Osullivan DPOA/Assigned Designee Name brent Barksdale Contact Information [phone] Advance Directives? Yes Advance Directives on File No History Provided By Patient,Medical Record Prior Living Arrangements House Household Members none Type of transporation used prior to Relies on Others admit Independent with ADL's Yes Is patient alert and oriented? Yes Comment Normally uses a four wheel walker prior to surgery. Patient/Family Preference OP PT Therapy Barriers to Discharge Yes Comment PT recommending SNF at this time. Patient has planned for home w/caregivers, outpatient PT. Discharge Plan Home Transportation Arrangement Family Referrals Initiated None needed
[2024-02-18 20:06] VITALS: BP 133/46; PULSE 64; RESP 16; TEMP 36.4; O2SAT 95
[2024-02-19] MEDS: IBUPROFEN 600 MG TABLET PO ×4 (00:51→18:33)
[2024-02-19] MEDS: ACETAMINOPHEN 325 MG TABLET 650 MG PO ×4 (00:51→18:33)
[2024-02-19] MEDS: SODIUM CHLORIDE 0.9% FLUSH 10 ML IV ×3 (01:04→20:28)
[2024-02-19] MEDS: LEVOTHYROXINE 137 MCG TABLET PO (06:16)
[2024-02-19 08:00] VITALS: BP 130/54; PULSE 63; RESP 16; TEMP 36.3; O2SAT 98
[2024-02-19] MEDS: ASPIRIN EC 81 MG TABLET PO ×2 (08:18→20:27)
[2024-02-19] MEDS: DOCUSATE 100 MG CAPSULE PO ×2 (08:18→20:27)
[2024-02-19] MEDS: VIT C/E/ZN/COPPR/LUTEIN/ZEAXAN CAPSULE 1 CAP PO (08:18)
[2024-02-19] MEDS: atenoloL 25 MG TABLET PO ×2 (08:18→20:27)
[2024-02-19] MEDS: polyethylene glycoL 3350 17 GM POWD.PACK PO (08:26)
--- NOTE | 2024-02-19 09:19 | PM.PNPO.1 ---
Subjective Subjective Interval history: Patient status post total right knee arthroplasty. Patient is continuing to make good improvements. She has been able to get up and work with physical therapy. Is complaining of some pain to the knee but is well controlled. Exam Vital Signs (past 8 hours): Oxygen Delivery Method Nasal Cannula Oxygen Flow Rate 0 Narrative Exam Narrative: Dressings intact. No sign of any drainage. Positive dorsiflexion. Nontender to palpation to the posterior aspect of the calf. Palpable pedal pulses. Objective Labs 02/18/24 05:50 PFSH Medical History (Updated 02/06/24 @ 12:58 by Suad Hawkins, RN) Bakers cyst History of COVID-19 (~02/2023) Macular degeneration of both eyes Stasis dermatitis Pulmonary embolism (2009) Factor V Leiden Osteoporosis Hypothyroidism Osteoarthritis IBS (irritable bowel syndrome) Embolism (~2016) HTN (hypertension) Surgical History (Updated 02/06/24 @ 12:55 by Suad Hawkins RN) History of total left hip arthroplasty (07/29/23) Hx of foot surgery History of carpal tunnel surgery of left wrist History of carpal tunnel surgery of right wrist History of open reduction and internal fixation (ORIF) procedure (04/2022) History of total right hip replacement (~2012) History of hysterectomy Social History household members: none Smoking Status: Former smoker alcohol intake: current Assessment & Plan Post-op Postoperative Procedures: Procedures Operation Date: 02/17/24 13:45 Actual Procedure Side Surgeon p Total Knee Arthroplasty Right Dinesh Rodriguez MD s Removal of hardware, right leg Right Dinesh Rodriguez MD Postoperative day: 2 Postoperative status narrative: Patient is status post right total knee arthroplasty. Plan is to eventually get the patient discharged home with home health care. Quality VTE Deep Vein Thrombosis/Pulmonary Embolism Present on Admission: No
--- NOTE | 2024-02-19 09:33 | PT.IPTN ---
Current Diagnoses Unilateral primary osteoarthritis, right knee (02/17/24) Unilateral post-traumatic osteoarthritis, right knee (02/17/24) Surgery Performed Operation Date: 02/17/24 13:45 Actual Procedures p Total Knee Arthroplasty(Right) - Dinesh Rodriguez MD s Removal of hardware, right leg(Right) - Dinesh Rodriguez MD Physical Therapy Treatment Note M2 PT-IP Current Condition Start: 02/18/24 12:11 Freq: NEEDED Status: Active Protocol: Document 02/18/24 10:50 AB (Rec: 02/18/24 12:31 AB [id number]) Physical Therapy Current Condition Current Condition Evaluation Date 02/18/24 Treatment Diagnosis s/p R TKA; difficulty in walking Onset Date 02/17/24 M3 PT-IP Subjective Start: 02/18/24 12:11 Freq: NEEDED Status: Active Protocol: Document 02/19/24 08:45 MB (Rec: 02/19/24 09:33 MB [id number]) Subjective Physical Therapy Visit Type Type Treatment Note Visit Start Time 08:45 Visit Stop Time 08:55 Number of ACCOUNTING TUTOR Visits 0 Physical Therapy Visit Comments Patient Comments ADULT MANAGER states that pt is ready to get to BR, has no pain and asks PT to assist and pt is agreeable to get up to BR. Therapy Pain Assessment Pain When Pain Assessed At Rest Pain Present Pain Present Denied Pain M4 PT-IP Mobility and Gait Start: 02/18/24 12:11 Freq: NEEDED Status: Active Protocol: Document 02/19/24 08:45 MB (Rec: 02/19/24 09:33 MB [id number]) PT-Bed Mobility Assessment Supine to Sit Supine to Sit Contact Guard Assistance,Head of Bed Elevated,Bedrails Scooting Scooting to Edge of Bed Contact Guard Assistance PT-Transfer Assessment Sit to and From Stand Sit to and from Stand Contact Guard Assistance,1 Person Assistance,Use of Upper Extremities Equipment Transfer Assistive Device Gait Belt,4 Wheeled Walker Orthotic/Prosthetic Devices or Brace: Yes Transfers Transfer Destination Toilet Transfer Technique Ambulation Transfer Ability Level of Assist Contact Guard Assistance,1 Person Assistance,Use of Upper Extremities Comments Mobility Comments HOB increased and PT cues pt ot reach for rail on the left and pt reports burning in right LE once she starts moving in bed. ADULT MANAGER donned immobilizer before PT entrance . Ongoing VCs for hand placement, to use hands to help scoot leg and that she can use left foot to help support right leg with bed mobility (pt does not follow this cue). Cues for hand placement for scooting to EOB and when pushing up from sitting to standing at locked rollator. Pt does a great job managing locks on rollator once up. Gait Assessment Gait Gait Assistance Required: Contact Guard Assist Distance (Feet) 20 Able to Maintain Weight Bearing Status Yes During Gait Assistive Devices Assistive Device Gait Belt,4 Wheeled Walker Orthotic/Prosthetic Devices or Brace: Yes Gait Deviations General Gait Pattern Antalgic,Decreased Stride Length,Decreased Feet Clearance,Step-to Gait Factors Limiting Gait Function Factors Limiting Gait Function Decreased Activity Tolerance, Decreased Strength,Difficulty Following Directions,Limited Range of Motion,Pain,Poor Balance,Poor Safety Awareness PT-Balance Assessment Sitting Balance and Reactions Static Sitting Balance Ability Good Dynamic Sitting Balance Ability Fair Standing Balance and Reactions Static Standing Balance Ability Fair Dynamic Standing Balance Ability Fair Device Used Rollator M5 PT-IP Objective Assessments Start: 02/18/24 12:11 Freq: NEEDED Status: Active Protocol: Document 02/18/24 10:50 AB (Rec: 02/18/24 12:31 AB [id number]) Orientation Orientation/Cognition Level of Alertness Alert Orientation Name Language Function Ability Hard of Hearing Safety Awareness Decreased Safety Awareness Memory Description Short Term Impaired Comments with slight confusion Gross Range of Motion Lower Extremity ROM Assessment Right Impaired Impairments pain limiting movement with increase guarding Strength Lower Extremity Strength Assessment Right Impaired Hip 3+/5 Knee 3+/5 Coordination Assessment Gross Coordination Gross Coordination WNL Sensation Assessment Sensation Gross Sensation WNL Muscle Tone Muscle Tone WNL Yes M6 PT-IP Treatment Start: 02/18/24 12:11 Freq: NEEDED Status: Active Protocol: Document 02/18/24 13:50 AB (Rec: 02/18/24 14:55 AB [id number]) Physical Therapy Treatment Education Education Provided Precautions,Safety M7 PT-IP Assessment and Plan Start: 02/18/24 12:11 Freq: NEEDED Status: Active Protocol: Document 02/19/24 08:45 MB (Rec: 02/19/24 09:33 MB [id number]) PT Summary Assessment and Plan Potential Rehabilitation Potential Fair Status of Condition at Evaluation Evolving Summary Impairments Pain,ROM,Strength,Balance, Coordination,Sensation,Bed Mobility,Transfers,Gait, Activity Tolerance Progress Towards Goals Slow Progress due to Pain Assessment Summary Pt reports burning pain with bed mobility but no pain upon arrival today. She mobilizes well with cues for bed mobility and requires cues for safey and hand placement for transfer and gait to BR with her rollator. Pt wishes to try for BM and so left on commode with call marquez over shoulder. Goals Bed Mobility Goal Independent Transfer Goal Standby Assistance,Four Wheeled Walker Gait Goal Standby Assistance,Four Wheel Walker Gait Distance 70 Other Goals up/down 1 step using 4WW SBA Days to Meet Goals 5 Frequency of Treatment Frequency Of Treatment Once a Day Treatment Plan Physical Therapy Treatment Plan Bed Mobility Training,Transfer Training,Gait Training, Therapeutic Exercise,Balance Retraining,Post Op Education, Discharge Planning,Hot or Cold Pack,Neuromuscular Re-ed, Coordination Retraining,Manual Therapy Precautions Brace R knee immobilizer when up and moving Weight Bearing Status Weight Bearing Status Weight Bear as Tolerated Allowed Weight Bearing Amount (enter % RLE WBAT or #) (%) Recommendations To Nursing Amount of Assist Needed 1 Person Assist Discharge Recommendations PT Discharge Recommendations Home with 29/11 Assist Available,Home Health Transportation Needs at Discharge Private Vehicle,Wheelchair/ Cabulance
[2024-02-19] MEDS: OXYCODONE IR 5 MG TABLET PO (10:28)
[2024-02-19 10:41] VITALS: RESP 63; TEMP 36.3
--- NOTE | 2024-02-19 12:54 | P.PN_ITS ---
Subjective Subjective Interval history: Called to discuss anticoagulation with nursing staff. Patient has Factor V Leiden and is on 20 mg Xarelto daily. I want to restart this today unless there is bleeding on her Sia dressing. Because of the very high dosages of anticoagulation necessary for her Factor V Leiden and the invasiveness of the surgery I performed on Tuesday I am having her keep her knee straight to allow the wound some time to heal. When she is up moving around I want her to wear a knee immobilizer. When she is in bed she can take the knee immobilizer off since it will have a tendency to be uncomfortable and hot, but I still want her to keep her leg straight so that the wound is not stressed by repetitive knee bending. She is still weightbearing as tolerated and once the wound has healed we will remove the knee immobilizer and have her transition to a normal physical therapy regimen working on knee range of motion. I anticipate making that transition at 10-14 days postoperatively. Exam Vital Signs (past 8 hours): - 02/19/24 08:00 02/19/24 10:41 Temperature 97.4 F L 97.4 F L Pulse Rate 63 Respiratory Rate 16 63 H Blood Pressure 130/54 L Pulse Oximetry 98 Oxygen Flow Rate 0 Oxygen Delivery Method Nasal Cannula Oxygen Flow Rate 0 Objective Labs 02/18/24 05:50 [facility] Medical History (Updated 02/06/24 @ 12:58 by Suad Hawkins RN) Bakers cyst History of COVID-19 (~02/2023) Macular degeneration of both eyes Stasis dermatitis Pulmonary embolism (2009) Factor V Leiden Osteoporosis Hypothyroidism Osteoarthritis IBS (irritable bowel syndrome) Embolism (~2016) HTN (hypertension) Surgical History (Updated 02/06/24 @ 12:55 by Suad Hawkins RN) History of total left hip arthroplasty (07/29/23) Hx of foot surgery History of carpal tunnel surgery of left wrist History of carpal tunnel surgery of right wrist History of open reduction and internal fixation (ORIF) procedure (04/2022) History of total right hip replacement (~2012) History of hysterectomy Social History household members: none Smoking Status: Former smoker alcohol intake: current Assessment & Plan Time-Based Coding :: [TOTAL MINUTES] spent with patient and on the chart (including review of chart, obtaining history, exam, reviewing outside data, placing orders, documenting exam and treatment plan, and counseling patient) on [DATE]. Quality VTE Deep Vein Thrombosis/Pulmonary Embolism Present on Admission: No
--- NOTE | 2024-02-19 12:59 | PC.NURSE ---
Day shift: Per telephone conversation with Dr Rodriguez at approx 1250 RN to check Pt's SHELLY and to make sure no significant shadow drainage present. This was just done by this narrative writer and a scant area was seen and marked. Pt to start back on her home dose of Xeralto per Dr Rodriguez. will order that med. Pt made aware of the above as well.
[2024-02-19] MEDS: RIVAROXABAN 10 MG TABLET 20 MG PO (13:58)
--- NOTE | 2024-02-19 16:04 | CM.DPNOTE ---
DCP Note PROJECT LEADER reviewed EMR. Per chart review, pt cleared for home with 24/7 support and HH. Per PT, could benefit from SNF ([facility], auth needed) but safe for home with 24/7 assist.. PROJECT LEADER had lengthy conversation with pt in room. Pt deeply distraught at the thought of discharging today, emotional crying and verbally very frustrated with this PROJECT LEADER. Mild confusion throughout conversation. per pt, she was told yesterday that she would be here another three days from PT. Was deeply upset at this PROJECT LEADER not listening to PT. Told her CGs at [facility] she was not discharging Tuesday per PTs report. Surgeon entered room during conversation, agreed to keep pt another night. Pt agreed to arrange for [facility] to assist her in the home tomorrow. Pt denies wanting to dc to SNF (my doctor told me not to go to SNF or I could catch something). Pt agreeable to HH. No preference for agency. Could not remember the name of her new PCP. Gave verbal consent for this CM team to contact johnny stuart (p [phone]) to coordinate discharge if needed. Per chart review, pt's PCP is Kallie Johnson...unsure if this is accurate or if pt would benefit from [facility] program. PROJECT LEADER emailed referral to Ambika/Marizol at [facility] for review, see email thread for more. f2f and orders needed P: anticipate home tomorrow with [facility] CGs and HH, pending acceptance. CM team will continue to follow closely ELINOR Jean-Baptiste
[2024-02-19 20:43] VITALS: BP 149/59; PULSE 78; RESP 18; TEMP 36.5; O2SAT 97
[2024-02-20] MEDS: IBUPROFEN 600 MG TABLET PO ×3 (00:15→11:44)
[2024-02-20] MEDS: ACETAMINOPHEN 325 MG TABLET 650 MG PO ×3 (00:16→11:44)
[2024-02-20] MEDS: LEVOTHYROXINE 125 MCG TABLET PO (06:09)
[2024-02-20 08:00] VITALS: BP 145/43; PULSE 62; RESP 16; TEMP 36.6; O2SAT 94
[2024-02-20] MEDS: VIT C/E/ZN/COPPR/LUTEIN/ZEAXAN CAPSULE 1 CAP PO (08:20)
[2024-02-20] MEDS: DOCUSATE 100 MG CAPSULE PO (08:20)
[2024-02-20] MEDS: ASPIRIN EC 81 MG TABLET PO (08:20)
[2024-02-20] MEDS: SODIUM CHLORIDE 0.9% FLUSH 10 ML IV (08:20)
[2024-02-20] MEDS: atenoloL 25 MG TABLET PO (08:20)
[2024-02-20] MEDS: RIVAROXABAN 10 MG TABLET 20 MG PO (08:20)
--- NOTE | 2024-02-20 09:41 | P.DS_ITS ---
History of Present Illness History of Present Illness Date Patient Seen: 02/20/24 Time Patient Seen: 09:42 Chief complaint: Right TKA /Hardware Removal Narrative: Operative Date/Time/Diagnoses Date of procedure: 02/17/24 Pre-op diagnosis: Right knee osteoarthritis, tibial malunion, retained tibial hardware Post-op diagnosis: same Procedure & Clinicians Procedure: Right total knee arthroplasty with deformity correction through tibial cut compensating for tibial shaft deformity as well as removal of a single screw from prior tibial nail (62759-31) Same procedure as scheduled: Yes Surgeon: Dinesh Rodriguez Sandwich Artist: Rylie Lyman Anesthesia Type: General, Spinal, Peripheral nerve block and Local Operative Notes Estimated Blood Loss (mL): 150 Procedure in detail: Right total knee arthroplasty with long stems on tibia and femur, CCK articulation, and deformity correction of tibial shaft malunion through the knee joint with removal of the single screw from prior tibial nail Implants: * Size 7 persona revision femoral component with 14 mm x 75 mm stem and 5 mm posterior lateral augment * Size C persona revision Tibial Component with 14 mm x 75 mm stem with the bottom of the stem cut off * Size 10 CCK Polyethylene Insert * Unresurfaced Patella Discharge Providers Provider Date of admission: 02/17/24 11:51 Discharge Date: 02/20/24 Consults: 02/17/24 06:00 Consult to Anesthesiology Routine Comment: Consulting Provider: Anesthesiologist Reason for consultation: Regional block for post operative pain control 02/17/24 18:45 Consult to Discharge Planning Routine Comment: Consult to Physical Therapy Evaluate & Treat Comment: Physician Instructions: postop TKA protocol Discharge provider: Rhiannon Pinzon PA-C Summary Hospital Course Discharge Diagnosis: Right knee osteoarthritis, tibial malunion, retained tibial hardware, s/p Right total knee arthroplasty with deformity correction through tibial cut compensating for tibial shaft deformity as well as removal of a single screw from prior tibial nail Hospital Course: Ms Hutchins's hospital course was unremarkable. On the morning of POD# 3, she was feeling well and wanted to go home. She has caregivers that she is paying for and tells me that case management is also arranging for HHPT. Her son is coming by at noon today to pick her up. She is having very little pain and is mostly taking Tylenol. Eating and voiding without difficulty. Exam Vital Signs (past 8 hours): - 02/20/24 08:00 Temperature 97.8 F Pulse Rate 62 Respiratory Rate 16 Blood Pressure 145/43 H Pulse Oximetry 94 Oxygen Flow Rate 0 Oxygen Delivery Method Room Air Oxygen Flow Rate 0 Narrative Exam Narrative: 5/5 strength in PF, DF, EHL on right. Quadriceps and hamstrings not tested d/t avoidance of knee bending. There is a dime-sized area of bloody drainage on the distal dressing; SHELLY is functioning and otherwise clean. Objective Labs 02/18/24 05:50 [facility] Medical History (Updated 02/06/24 @ 12:58 by Suad Hawkins RN) Bakers cyst History of COVID-19 (~02/2023) Macular degeneration of both eyes Stasis dermatitis Pulmonary embolism (2009) Factor V Leiden Osteoporosis Hypothyroidism Osteoarthritis IBS (irritable bowel syndrome) Embolism (~2016) HTN (hypertension) Surgical History (Updated 02/20/24 @ 09:49 by Rhiannon Pinzon PA-C) History of total left hip arthroplasty (07/29/23) Hx of foot surgery History of carpal tunnel surgery of left wrist History of carpal tunnel surgery of right wrist History of open reduction and internal fixation (ORIF) procedure (04/2022) History of total right hip replacement (~2012) History of hysterectomy Social History household members: none Smoking Status: Former smoker alcohol intake: current Discharge Assessment & Plan Assessment and Plan Assessment: Right knee osteoarthritis, tibial malunion, retained tibial hardware, s/p Right total knee arthroplasty with deformity correction through tibial cut compensating for tibial shaft deformity as well as removal of a single screw from prior tibial nail Plan of Treatment: Discharge home w/ son, caregivers, and HHPT. Multimodal pain control. Xarelto 20mg/day as per preop for VTE prophylaxis. WBAT to RLE. Knee immobilizer is not essential to recovery, but keeping her knee extended at all times is; we discussed this in detail. F/u in office in 10-14 days as scheduled. Discharge Plan Discharge Plan Patient Disposition: Home Health Service Transfer to: Home Health, Other and [facility] Discharge orders & Medications Prescriptions: New oxycodone 5 mg Tablet 5 mg PO Q4-6H PRN (Reason: Pain, Severe (7-10)) Qty: 30 0RF Continued PreserVision AREDS 4,296 mcg-226 mg-90 mg Capsule 1 cap PO DAILY levothyroxine 137 mcg Tablet 137 mcg PO 5XW atenolol 25 mg Tablet 25 mg PO BID amlodipine 5 mg Tablet 5 mg PO QPM levothyroxine 125 mcg Tablet 125 mcg PO 2XW furosemide 20 mg Tablet 20 mg PO DAILY PRN (Reason: Edema) losartan 100 mg Tablet 100 mg PO DAILY acetaminophen 500 mg Capsule 1,000 mg PO Q6H PRN (Reason: Pain) Xarelto 20 mg Tablet 20 mg PO DAILY Rx Instructions: must administer with evening meal Follow up/Referrals: Dinesh Rodriguez MD [Physician] - 03/01/24 11:00 am (Follow up w/ Rhiannon Pinzon PA-C, at [facility] office in [place].) Diet/Activity/Treatments Diet: Diet as Tolerated Activity: Weightbearing as tolerated. Knee immobilizer should be on at most times when upright or sitting. The goal is to keep the leg straight and to avoid repetitively bending the knee while the incision is healing. Bending the knee once or twice won't 'hurt' anything, but we want you to refrain from bending and straightening multiple times while the incision is healing. Cold/Heat Therapy: Ice to knee as needed for pain. Skin/Wound/Dressing Care Report to your healthcare provider any signs of infection, such as:: chills, fever, night sweats, unusual drainage and unusual redness Dressing: May shower. Keep the dressing in place until follow up in office. In 5-7 days the batteries will , at which point you can cut off the battery pack and dispose of it. No bathing or otherwise soaking incision. Call the office if the dressing becomes saturated inside. Visit Report/Discharge Packet Instructions: DI for Knee Replacement, DI for Joint Replacement Hardware Removal, DI for Prescription Opioid Use Stand Alone Forms: Patient Portal/API, Stroke Signs & Symptoms, Surgery Discharge Quality VTE Deep Vein Thrombosis/Pulmonary Embolism Present on Admission: No
[2024-02-20] MEDS: OXYCODONE IR 5 MG TABLET PO (11:45)
--- NOTE | 2024-02-20 12:05 | PC.NURSE ---
Day shift: Discharge instructions gone over with patient and patient's son. All questions answered, patient stated understanding. PIV d/c'ed prior to discharge. All belongings with patient. PCT Corona escorted patient via wheelchair to exit.
--- NOTE | 2024-02-20 13:44 | CM.DPNOTE ---
Patient has d/c order and will return home, transport with her son. Spoke with Leda at [facility] and she states they are able to accept the patient for PT, faxed order, dc packet, and face to face to her. Spoke with the patient at the bedside and she states she is a little nervous her hired caregivers do not know she will be home today. I requested to call them and notify and she agrees- spoke with managed care director at [facility] and they are aware of pt d/c and will call to f/u for this evening's schedule. No other needs voiced or identified. ELINOR Alex
== END 2024-02-20 12:07 | disposition home health service (06) | DRG 470 ==
PROVIDERS: Admitting Provider Orthopaedic Surgery Adult Reconstructive Orthopaedic Surgery; Referring Provider Orthopaedic Surgery Adult Reconstructive Orthopaedic Surgery; Visit Provider Orthopaedic Surgery Adult Reconstructive Orthopaedic Surgery
PROC: 0SRC0JZ Replacement of Right Knee Joint with Synthetic Substitute, Open Approach (ICD-10-PCS; CPT 27447; principal; 2024-02-17 13:45)
DX: M17.11 Unilateral primary osteoarthritis, right knee (principal); S82.201P Unspecified fracture of shaft of right tibia, subsequent encounter for closed fracture with malunion; D68.51 Activated protein C resistance; E03.9 Hypothyroidism, unspecified; I10 Essential (primary) hypertension; X58.XXXD Exposure to other specified factors, subsequent encounter; Z86.711 Personal history of pulmonary embolism; Z79.01 Long term (current) use of anticoagulants; Z87.891 Personal history of nicotine dependence
CPT/HCPCS: 36415; 73560; 85014; 85018; 97116; 97162; 97530; C1776; J0690; J1100; J1171; J2405; J2704; J3010